=== PATIENT | female | born 1955 | race Caucasian/White ===

== ENCOUNTER → 2018-12-14 10:27 | Outpatient (CLI) | payer OTHER, SELFPAY ==
[2018-12-14 11:04] LABS: Add Manual Diff / Slide Review NO; Basophils Absolute Auto 0 /uL (0-100); Basophils Percent Auto 0.7 % (0-2); Eosinophils Absolute Auto 200 /uL (0-450); Eosinophils Percent Auto 2.9 % (2-4); Hematocrit 40.5 % (36-46); Hemoglobin 13.8 g/dL (12.0-16.0); Lymphocytes Absolute Auto 1800 /uL (1100-4500); Lymphocytes Percent Auto 24.9 % (25-40); Mean Corpuscular HGB Conc 34.2 % (30-36); Mean Corpuscular Hemoglobin 30.7 PG (26-34); Monocytes Absolute Auto 500 /uL (0-900); Monocytes Percent Auto 7.6 % (3-14); Neutrophils Absolute Auto 4500 /uL (1500-7000); Neutrophils Percent Auto 63.9 % (50-75); Platelet Count 393 X10^3/uL (150-400); Red Cell Distribution Width 14.3 % (11.6-14.8); White Blood Cell Count 7.1 X10^3/uL (4.5-11.0)
[2018-12-14 11:11] LABS: Hemoglobin A1C% w Est Avg Glu 5.9 % (4.0-6.0)
[2018-12-14 11:18] LABS: Carbon Dioxide 28 mmol/L (22-32); Chloride 100 mmol/L (98-107); HEMOLYSIS < 15 (0-50); Potassium 4.4 mmol/L (3.4-5.1); Sodium 138 mmol/L (137-145)
== END ==
PROVIDERS: Family Provider Family Medicine; PCP Family Medicine; Visit Provider Orthopaedic Surgery
DX: M17.10 Unilateral primary osteoarthritis, unspecified knee (principal); Z01.818 Encounter for other preprocedural examination; Z01.812 Encounter for preprocedural laboratory examination; R73.9 Hyperglycemia, unspecified
CPT/HCPCS: 36415; 80051; 83036; 85025; 93005

== ENCOUNTER 2018-12-26 07:57 | Inpatient (IN) | payer OTHER, SELFPAY ==
[2018-12-12 08:43] VITALS: BMI 36.1
[2018-12-26] VITALS (19 sets, daily range): BP systolic 96–146; BP diastolic 55–92; PULSE 65–81; RESP 14–18; TEMP 35.7–36.5; O2SAT 88–99; BMI 34.7; BMI 36.1
--- NOTE | 2018-12-26 06:00 | DI.RAD.S_ITS ---
PROCEDURE: XR KNEE RT 1TO2V INDICATIONS: total right knee post operative TECHNIQUE: 2 view(s) of the knee acquired. COMPARISON: None. FINDINGS: Bones: Patient is status post knee joint arthroplasty. Hardware components are in expected positions. Visualized bony structures are intact. Soft tissues: Overlying postoperative changes are noted. IMPRESSION: Normal postoperative alignment, after right total knee arthroplasty. Dictated by: Jourdan Lee M.D. on 12/26/2018 at 14:54 Approved by: Jourdan Lee M.D. on 12/26/2018 at 14:55
[2018-12-26] MEDS: CELECOXIB 200 MG CAPSULE PO (08:37)
[2018-12-26] MEDS: ACETAMINOPHEN 325 MG TABLET 975 MG PO ×3 (08:37→19:50)
[2018-12-26] MEDS: LACTATED RINGERS 1,000 ML 42 ML IV ×2 (08:43→12:23)
--- NOTE | 2018-12-26 09:28 | PM.PREOP ---
Pre-operative Note Interval Note History & Physical reviewed/Exam performed by Physician: Yes Changes to H&P: No
--- NOTE | 2018-12-26 09:28 | PM.OP.1 ---
Operative Date/Time/Diagnoses Date of procedure: 12/26/18 Time of procedure: 11:32 Pre-op diagnosis: Right knee osteoarthritis Post-op diagnosis: same Procedure & Clinicians Procedure: right total knee arthroplasty Same procedure as scheduled: Yes Indications: The patient presents today for total knee arthroplasty after failure of conservative treatment. The nature of the procedure including the risks and benefits, alternatives, postoperative course and expected outcome were discussed and all questions answered. Consent was obtained. Operative site confirmed and marked. Surgeon: Tobias Logan Health Plan Specialist: Rivera Monahan Anesthesia Type: General, Spinal and Local Operative Notes Findings: severe osteoarthritis with valgus alignment. Closure Type: primary Specimen(s): none sent Prosthetic devices, grafts, tissues, transplants, or devices: [facility]: 5 femoral component, 3 tibial component, 10 mm BCS polyethylene tray and 29 x 7.5 mm round patella Applied: implant(s) Estimated Blood Loss (mL): 50 Blood products transfused: none Tourniquet time (min): 21 Procedure in detail: The patient was taken to the operative suite and placed under General and spinal anesthesia. The patient was given prophylactic antibiotics prior to surgery. The patient was also given tranexamic acid, 1 g, just prior to surgery for postoperative hemostasis. The lateral knee was prepped and the joint injected with 20 mL of 1% Lidocaine with epinephrine. The knee was then prepped and draped in usual sterile fashion. The leg was exsanguinated with an Esmarch dressing and the tourniquet raised to 250 torr. A 15 cm anterior incision was made. Next a medial trivector arthrotomy was made. The extensor mechanism was marked to ensure accurate repair. Initial exposing dissection was carried out medially and laterally. The knee was then extended and the patellar thickness was measured and a cut made removing approximately 7 mm of bone with a goal of restoring normal patellar thickness. The patella was then sized and drilled. Some excess lateral bone was excised and the patellofemoral ligament released. The tourniquet was then released. The knee was then flexed and the [employer] femoral guide was placed. The anterior pins were placed and the distal rotation holes drilled. The distal cutting guide was placed and the templated distal femoral cut was made. The templating cutting block was then placed and the anterior, posterior and chamfer cuts made. The [employer] tibial guide was placed and the alignment checked along the axis of the proximal tibial with a callum. The proximal tibial cut was then made with an oscillating saw. All meniscus and bony debris was then removed. Flexion extension gaps were checked. There was mild tightness laterally as expected from her deformity. The lateral capsule was released using a 15 blade and a pie crust technique. This nicely balance the knee.. The soft tissues were then injected with a combination of 20 mL of half percent Marcaine with epinephrine and 20 mL of Exparel. The trial components were then placed. The knee went into full extension and flexion beyond 120?. There was excellent medial- lateral balance throughout motion. Patellar tracking was excellent. The trial components were removed and size is confirmed for the final implants. The knee was then exsanguinated with an Esmarch dressing and the tourniquet reapplied for cementing. The knee was cleansed with Pulsavac irrigation and dried. The final components were cemented in with high viscosity vacuum mixed bone cement with antibiotics. The knee was held in extension and the patellar clamp until the cement had adequately cured. The knee was then irrigated with dilute Betadine solution. The extensor mechanism was closed with 5 interrupted #1 Vicryl sutures in 90 degrees of flexion. The joint was then injected with a combination of 1 g of tranexamic acid and 20 mL of quarter percent Marcaine with epinephrine. The subcutaneous tissue was closed with 2-0 Vicryl. The skin was closed with charlotte and surgical adhesive. An Aquacel dressing and Geoff wrap were then applied. Complications: none Condition: stable Disposition: PACU Plan for aftercare: Critical access hospital protocol for total knee arthroplasty.
[2018-12-26] MEDS: CEFAZOLIN 2 GM/100 ML FROZ.PIGGY IV ×2 (10:12→18:02)
[2018-12-26] MEDS: TRANEXAMIC ACID 1,000 MG VIAL 1000 MG INJ ×2 (10:30→11:24)
--- NOTE | 2018-12-26 10:48 | SUR.OPER ---
Supine on padded OR bed. Pillow under head, arms secured on padded armboards <90 degree abduction. Safety belt across torso. Non-operative leg secured with tape over blanket over lower leg. Operative leg secured in DeMayo/Gopi positioner. Foam padded brace at thigh of operative leg.
[2018-12-26] MEDS: BUPIVACAINE 0.25% W/ EPI 30 ML VIAL 60 ML INJ (10:54)
[2018-12-26] MEDS: BUPIVACAINE LIPOSOME 266 MG/20 ML VIAL INJ (10:54)
[2018-12-26] MEDS: LIDOCAINE 1% W/EPI INJ 20 ML INJ (10:55)
[2018-12-26] MEDS: POVIDONE-IODINE 15 ML, SODIUM CHLORIDE 0.9% 250 ML TOP (10:56)
[2018-12-26] MEDS: HYDROMORPHONE 2 MG INJ 0.5 MG IV ×2 (12:14→12:25)
[2018-12-26] MEDS: ONDANSETRON 4 MG/2 ML INJ IV (13:25)
[2018-12-26] MEDS: LACTATED RINGERS 1,000 ML 125 ML IV (13:25)
--- NOTE | 2018-12-26 14:31 | PC.NURSE ---
Addendum entered by Tere Mckeon R.N. 12/26/18 14:36: At 1400, pt O2 sat 88% on RA while sleeping, states has sleep apnea with no formal diagnosis. O2 2L NC placed, O2 04% on 2L while sleeping/resting. Original Note: Day Shift- Report from PACU taken by BERTA Faust prior to pt arrival to unit. Pt arrived to room 201 at 1240 via bed. Oriented to post op routines, call light. Rodrigo at bedside. Denies any pain to right knee area, does state having sciatica pain, helps with repositioning. Pt able to raise RLE against some resistance. Right knee aquacel dressing CDI with rosio wrap CDI. IVF started to left hand PIV. Pt nauseated, given briana crackers per her request. Nausea persistent and requesting prn med. Zofran IV prn given with good effect. Call light within reach.
--- NOTE | 2018-12-26 15:27 | PT.IIE ---
Current Diagnoses Unilateral primary osteoarthritis, right knee (12/26/18) Surgery Performed Operation Date: 12/26/18 10:00 Actual Procedures p Total Knee Arthroplasty(Right) - Tobias Logan MD Surgical History (Last Updated 12/12/18 @ 09:26 by Tomasa Shannon, RN) History of partial hysterectomy (Acute) Hx of LASIK (Acute) Medical History (Last Updated 12/12/18 @ 09:26 by Tomasa Shannon RN) ADHD (Acute) Cystocele with rectocele (Acute) Depression (Acute) Diabetes (Acute) GERD (gastroesophageal reflux disease) (Acute) Hyperlipidemia (Acute) Numbness and tingling of both feet (Acute) Sciatica (Acute) Sleep apnea (Acute) Physical Therapy Inpatient Evaluation/Re-Eval M1 PT/OT-IP Prior Functional Status Start: 12/26/18 15:34 Freq: NEEDED Status: Active Protocol: Document 12/26/18 15:27 DLM (Rec: 12/26/18 15:51 DL [id number]) Medical Review Prior Functional Status Medical History Reviewed Yes Diet/Fluid Consistency Regular Communication WNL Mobility and Gait Independent, no device, community distances Activities of Daily Living and IADL's Independent Social History Household Members spouse children Living Arrangements House Number of Floors (Floors) Two Floors Number of Stairs To Enter/Railing? 2 Home Equipment Front Wheel Walker Additional Social History Comment laundry in the basement Adult son also available to help M2 PT-IP Current Condition Start: 12/26/18 15:34 Freq: NEEDED Status: Active Protocol: Document 12/26/18 15:27 DLM (Rec: 12/26/18 15:51 DL [id number]) Physical Therapy Current Condition Current Condition Evaluation Date 12/26/18 Treatment Diagnosis right TKA, gait impairment Onset Date 12/26/18 Weight Bearing Status Weight Bearing Status Weight Bear as Tolerated M3 PT-IP Subjective Start: 12/26/18 15:34 Freq: NEEDED Status: Active Protocol: Document 12/26/18 15:27 DLM (Rec: 12/26/18 15:51 DLM [id number]) Subjective Physical Therapy Visit Type Type Initial Evaluation Visit Start Time 15:00 Visit Stop Time 15:27 Total Visit Minutes 27 Number of UTILIZATION REVIEW NURSE Visits 0 Physical Therapy Visit Comments Patient Comments still having numbness especially in buttock area Patient Goals go home with help from Therapy Pain Assessment Pain When Pain Assessed After Treatment Pain Present Pain Present Pain Reported Location Right Posterior Knee Intensity 2 Scale Used Numeric (1 - 10) Description Aching Pain Management Techniques Apply Cold Elevation M4 PT-IP Mobility and Gait Start: 12/26/18 15:34 Freq: NEEDED Status: Active Protocol: Document 12/26/18 15:27 DLM (Rec: 12/26/18 15:51 DL [id number]) PT-Bed Mobility Assessment Supine to Sit Supine to Sit Standby Assistance Sit to Supine Sit to Supine Standby Assistance Scooting Scooting to Edge of Bed Independent PT-Transfer Assessment Sit to and From Stand Sit to and from Stand Contact Guard Assistance Use of Upper Extremities Equipment Transfer Assistive Device Gait Belt Front Wheeled Walker Transfers Transfer Destination Bedside Commode Transfer Technique Stand Step Pivot Transfer Ability Level of Assist Contact Guard Assistance Comments Mobility Comments verbal cues to hand placement and safety issues Gait Assessment Comments Gait Comments did not ambulate this visit due to nausea when up PT-Balance Assessment Sitting Balance and Reactions Static Sitting Balance Ability Normal Dynamic Sitting Balance Ability Normal Standing Balance and Reactions Static Standing Balance Ability Good Dynamic Standing Balance Ability Fair Device Used FWW M5 PT-IP Objective Assessments Start: 12/26/18 15:34 Freq: NEEDED Status: Active Protocol: Document 12/26/18 15:27 DLM (Rec: 12/26/18 15:51 [facility] [id number]) Orientation Orientation/Cognition Level of Alertness Alert Orientation Name Age Birthday Month Date Year Day of Week Place Situation Language Function Ability No Deficits Noted Safety Awareness Understands Safety Issues Memory Description No Deficits Noted Gross Range of Motion Upper Extremity ROM Assessment Within Functional Limits Lower Extremity ROM Assessment Right Impaired Impairments right knee limited post-op, tolerated 95 degrees flexion in sitting, tolerates full extension on bed Strength Upper Extremity Strength Assessment Within Functional Limits Lower Extremity Strength Assessment Right Impaired Hip able to do straight leg raise Knee knee ext 2+/5 Ankle DF 4/5 Coordination Assessment Gross Coordination Gross Coordination WNL Sensation Assessment Sensation Gross Sensation Right LE Impaired Sensation Description Numbness Comments Sensation Comments post-op block still wearing off Muscle Tone Muscle Tone WNL Yes M6 PT-IP Treatment Start: 12/26/18 15:34 Freq: NEEDED Status: Active Protocol: Document 12/26/18 15:27 DLM (Rec: 12/26/18 15:51 DL [id number]) Physical Therapy Treatment Exercises Exercises Ankle Pumps Education Education Provided Weight Bearing Status Safety M7 PT-IP Assessment and Plan Start: 12/26/18 15:34 Freq: NEEDED Status: Active Protocol: Document 12/26/18 15:27 DLM (Rec: 12/26/18 15:51 DL [id number]) PT Summary Assessment and Plan Potential Rehabilitation Potential Excellent Status of Condition at Evaluation Evolving Summary Impairments Pain ROM Strength Balance Sensation Bed Mobility Transfers Gait Activity Tolerance Assessment Summary Patient complains of nausea when up on bedside commode this visit. She reports lingering numbness in right LE and buttock area. She needs verbal cues for safe use of FWW. Pt returned to bed to rest after being up on bedside commode. She has a supportive Spouse to assist her at discharge. Anticipate she will be safe to discharge home if she continues to progress well . Goals Bed Mobility Goal Independent Transfer Goal Independent Front Wheeled Walker Gait Goal Independent Front Wheel Walker Gait Distance 150 feet Other Goals up and down 2 steps with min assist Days to Meet Goals 2 Frequency of Treatment Frequency Of Treatment Twice a Day Treatment Plan Physical Therapy Treatment Plan Bed Mobility Training Transfer Training Gait Training Therapeutic Exercise Balance Retraining Post Op Education Discharge Planning Hot or Cold Pack Recommendations To Nursing Amount of Assist Needed 1 Person Assist Discharge Recommendations PT Discharge Recommendations Home with Assistance Outpatient PT
[2018-12-26] MEDS: INDOMETHACIN 25 MG CAPSULE 50 MG PO ×2 (16:37→19:47)
[2018-12-26] MEDS: CYCLOBENZAPRINE 10 MG TABLET PO (16:41)
[2018-12-26] MEDS: CALCIUM CARBONATE 500 MG TAB PO (18:01)
[2018-12-26] MEDS: OXYCODONE IR 5 MG TABLET PO (19:46)
[2018-12-26] MEDS: GABAPENTIN 300 MG CAPSULE PO (19:48)
[2018-12-26] MEDS: ASPIRIN EC 81 MG TABLET PO (19:48)
[2018-12-26] MEDS: METFORMIN HCL 500 MG TABLET PO (19:48)
[2018-12-26] MEDS: ONDANSETRON 4 MG ODT PO (19:49)
[2018-12-26] MEDS: TOLTERODINE 1 MG TABLET 2 MG PO (19:49)
[2018-12-27] MEDS: CEFAZOLIN 2 GM/100 ML FROZ.PIGGY IV (02:24)
[2018-12-27 05:00] VITALS: BP 117/63; PULSE 75; RESP 18; TEMP 36.6; O2SAT 95
[2018-12-27] MEDS: PANTOPRAZOLE 20 MG TABLET PO (05:29)
--- NOTE | 2018-12-27 07:12 | P.DS_ITS ---
History of Present Illness Date Patient Seen: 12/27/18 Time Patient Seen: 07:09 Chief complaint: Right Total Knee Arthroplasty Narrative: Hospital day 2, postop day 1 following right total knee arthroplasty by Dr. Logan. Patient doing well at this time. She has been ambulating to the bathroom without difficulty. She did well with physical therapy yesterday. Pain controlled well with oxycodone and indomethacin. Patient is desiring to go home today. Discharge Providers Date of admission: 12/26/18 07:57 Discharge Date: 12/27/18 Primary care physician: Henrry Gao MD Consults: 12/26/18 12:55 Consult to Discharge Planning Routine Comment: Consult to Physical Therapy Evaluate & Treat Comment: Physician Instructions: postop TKA protocol Consult to Respiratory Therapy Evaluate & Treat Comment: Physician Instructions: Evaluate and treat Discharge provider: Tao Shook PA-C Summary Discharge Diagnosis: Status post right total knee arthroplasty Hospital Course: Patient brought to hospital on 12/26/2018 for above-noted surgery. She remained stable postoperatively. Did well with physical therapy. Ready for discharge home on postop day 1. Status at Discharge Cognitive/behavioral status at discharge: oriented Functional status at discharge: uses cane/walker Overall status at discharge: patient is progressing back to baseline Time Spent with Patient Less than 30 minutes Exam Vital Signs (past 8 hours): - 12/26/18 23:35 12/27/18 05:00 Temperature 97.5 F L 98 F Pulse Rate 78 75 Respiratory Rate 18 18 Blood Pressure 133/78 117/63 Pulse Oximetry 96 95 Oxygen Delivery Method Room Air Oxygen Flow Rate 1.5 Narrative Exam Narrative: Right leg. Geoff wrap an Aquacel dressing in place that are dry without drainage or inflammation. No calf pain or swelling. Pulses symmetrical. Discharge Plan Discharge Plan Patient Disposition: Home Discharge comment: Discharge to home today. Patient is a [facility] patient and has postoperative pain medications at home. She is scheduled for physical therapy at [facility]. Discharge Med Rec/Prescriptions Prescriptions: New aspirin 81 mg Tablet,Delayed Release (Dr/Ec) 81 mg PO BID Qty: 60 RF: 0 Continued metformin 500 mg Tablet 500 mg PO BID Qty: 0 RF: 0 simvastatin 20 MG tablet 40 mg PO BEDTIME Qty: 0 RF: 0 fluoxetine 20 mg Capsule 20 mg PO DAILY Qty: 0 RF: 0 cyclobenzaprine 5 mg Tablet 10 mg PO TID PRN (Reason: muscle relaxer) Qty: 0 RF: 0 acetaminophen [Tylenol Extra Strength] 500 mg Tablet 1,000 mg PO Q6H PRN (Reason: pain) RF: 0 tolterodine 2 mg Tablet 2 mg PO BID RF: 0 indomethacin 50 mg Capsule 50 mg PO BID-TID PRN (Reason: pain) RF: 0 gabapentin 300 mg Capsule 300 mg PO BID RF: 0 omeprazole 20 mg Capsule,Delayed Release(Dr/Ec) 20 mg PO DAILY RF: 0 Discontinued hydrocodone-acetaminophen [Vicodin] 5 MG/300 MG tablet 1 tab PO Q6H PRN (Reason: pain) Qty: 0 RF: 0 Follow up/Referrals: Henrry Gao MD [Primary Care Provider] - Provider Discharge Instructions Diet: Diet as Tolerated Activity: Ambulate as tolerated. Use walker as needed. Do [id number] exercises for the knee as much as possible. Cold/Heat Therapy: Cold pack to knee right knee as needed. Skin/Wound/Dressing Care Report to your healthcare provider any signs of infection, such as:: chills, fever, night sweats, increased pain, unusual drainage and unusual redness Dressing: Keep Aquacel dressing in place until postop visit. Visit Report/Discharge Packet Instructions: DI for Knee Replacement Discharge Data Primary Care Provider: Henrry Gao Attending Provider: Tobias Logan Admit Date/Time: 12/26/18 07:57 Quality VTE Deep Vein Thrombosis/Pulmonary Embolism Present on Admission: No
[2018-12-27 07:24] LABS: Hematocrit 34.2 % (36-46); Hemoglobin 11.7 g/dL (12.0-16.0)
[2018-12-27] MEDS: OXYCODONE IR 5 MG TABLET PO (08:07)
[2018-12-27] MEDS: ACETAMINOPHEN 325 MG TABLET 975 MG PO (08:08)
[2018-12-27] MEDS: METFORMIN HCL 500 MG TABLET PO (08:09)
[2018-12-27] MEDS: ASPIRIN EC 81 MG TABLET PO (08:09)
--- NOTE | 2018-12-27 08:46 | PT.IPTN ---
Current Diagnoses Unilateral primary osteoarthritis, right knee (12/26/18) Surgery Performed Operation Date: 12/26/18 10:00 Actual Procedures p Total Knee Arthroplasty(Right) - Tobias Logan MD Physical Therapy Treatment Note M2 PT-IP Current Condition Start: 12/26/18 15:34 Freq: NEEDED Status: Active Protocol: Document 12/26/18 15:27 DLM (Rec: 12/26/18 15:51 DLM [id number]) Physical Therapy Current Condition Current Condition Evaluation Date 12/26/18 Treatment Diagnosis right TKA, gait impairment Onset Date 12/26/18 Weight Bearing Status Weight Bearing Status Weight Bear as Tolerated M3 PT-IP Subjective Start: 12/26/18 15:34 Freq: NEEDED Status: Active Protocol: Document 12/27/18 08:33 SA (Rec: 12/27/18 08:46 SA [id number]) Subjective Physical Therapy Visit Type Type Treatment Note Visit Start Time 08:02 Visit Stop Time 08:30 Total Visit Minutes 28 Number of HOSPITAL PHARMACY TECHNICIAN Visits 1 Physical Therapy Visit Comments Patient Comments Pt up and eager for PT this AM . Patient Goals To catch 9 o'clock [place] home this morning. Therapy Pain Assessment Pain When Pain Assessed During Mobility Pain Present Pain Present Pain Reported Location Right Posterior Knee Intensity 2 Scale Used Numeric (1 - 10) Pain Management Techniques Apply Heat Modification of Treatment Re-positioning M4 PT-IP Mobility and Gait Start: 12/26/18 15:34 Freq: NEEDED Status: Active Protocol: Document 12/27/18 08:33 SA (Rec: 12/27/18 08:46 SA [id number]) PT-Bed Mobility Assessment Rolling Type of Rolling Roll to Right Level of Assist Standby Assistance Supine to Sit Supine to Sit Standby Assistance Sit to Supine Sit to Supine Standby Assistance Scooting Scooting to Edge of Bed Independent Scooting Up and Down in Bed Independent PT-Transfer Assessment Sit to and From Stand Sit to and from Stand Standby Assistance Contact Guard Assistance Equipment Transfer Assistive Device Gait Belt Front Wheeled Walker Orthotic/Prosthetic Devices or Brace: No Transfers Transfer Destination Bed Toilet Transfer Technique Stand Step Pivot Transfer Ability Level of Assist Standby Assistance Contact Guard Assistance Comments Mobility Comments Pt with SBA-CGA for most mobilities using FWW, cues to focus on task as pt is very talkative and distractable. Gait Assessment Gait Gait Assistance Required: Contact Guard Assist Distance (Feet) 150 Able to Maintain Weight Bearing Status Yes During Gait Assistive Devices Assistive Device Gait Belt Straight Cane Front Wheeled Walker Orthotic/Prosthetic Devices or Brace: No Gait Deviations General Gait Pattern Decreased Stride Length Decreased Feet Clearance Factors Limiting Gait Function Factors Limiting Gait Function Decreased Activity Tolerance Decreased Strength Pain Comments Gait Comments Gait training in [place] with FWW and SBA-CGA and pt able to increase WBing through RLE with continued gait and cues, also able to normalize step length. Gait training in room with no AD and CGA, short distances. LOB x 1 with self recovery, during turning. Pt was distracted and talking when this occured. Stair Climbing Assessment Evaluation Level of Assist On Stairs Standby Assistance Contact Guard Assistance 1 Person Assistance Devices Stair Climbing Assistive Devices Right Railing Technique/Endurance Stair Climbing Direction Ascend and Descend Stair Climbing Technique Step to Step Number of Steps Climbed 3 Query Text: Stair Climbing Set # Repetitions (reps) 2 Comments Stair Climbing Comments Step to gait pattern with SBA- CGA and min cues, completed 2 sets with no increased in pain . Pt states will be present to help with stairs. M5 PT-IP Objective Assessments Start: 12/26/18 15:34 Freq: NEEDED Status: Active Protocol: Document 12/26/18 15:27 DL (Rec: 12/26/18 15:51 [facility] [id number]) Orientation Orientation/Cognition Level of Alertness Alert Orientation Name Age Birthday Month Date Year Day of Week Place Situation Language Function Ability No Deficits Noted Safety Awareness Understands Safety Issues Memory Description No Deficits Noted Gross Range of Motion Upper Extremity ROM Assessment Within Functional Limits Lower Extremity ROM Assessment Right Impaired Impairments right knee limited post-op, tolerated 95 degrees flexion in sitting, tolerates full extension on bed Strength Upper Extremity Strength Assessment Within Functional Limits Lower Extremity Strength Assessment Right Impaired Hip able to do straight leg raise Knee knee ext 2+/5 Ankle DF 4/5 Coordination Assessment Gross Coordination Gross Coordination WNL Sensation Assessment Sensation Gross Sensation Right LE Impaired Sensation Description Numbness Comments Sensation Comments post-op block still wearing off Muscle Tone Muscle Tone WNL Yes M6 PT-IP Treatment Start: 12/26/18 15:34 Freq: NEEDED Status: Active Protocol: Document 12/27/18 08:33 SA (Rec: 12/27/18 08:46 SA [id number]) Physical Therapy Treatment Exercises Exercises Ankle Pumps Gluteal Sets Quad Sets Heel Slides Education Education Provided Weight Bearing Status Post-Op Packet Safety Other Treatments Other Treatment Performed Adjusted personal FWW for better fit. M7 PT-IP Assessment and Plan Start: 12/26/18 15:34 Freq: NEEDED Status: Active Protocol: Document 12/27/18 08:33 (Rec: 12/27/18 08:46 [id number]) PT Summary Assessment and Plan Summary Progress Towards Goals Progressing Toward Goals Assessment Summary Pt ready for d/c this AM, able to manage stairs and ambulation safely and has supportive at home. Has no equipment needs and has good safety awareness. OP PT set up to start next week. Frequency of Treatment Frequency Of Treatment Twice a Day Treatment Plan Physical Therapy Treatment Plan Bed Mobility Training Transfer Training Gait Training Therapeutic Exercise Balance Retraining Post Op Education Discharge Planning Hot or Cold Pack Recommendations To Nursing Amount of Assist Needed 1 Person Assist Discharge Recommendations PT Discharge Recommendations Home with Assistance Outpatient PT
[2018-12-27] MEDS: TOLTERODINE 1 MG TABLET 2 MG PO (09:02)
[2018-12-27] MEDS: FLUoxetine 20 MG CAPSULE PO (09:03)
[2018-12-27] MEDS: GABAPENTIN 300 MG CAPSULE PO (09:03)
[2018-12-27] MEDS: INDOMETHACIN 25 MG CAPSULE 50 MG PO (09:03)
--- NOTE | 2018-12-27 09:23 | PC.NURSE ---
Day Shift- Pt doing very well. Cleared by PT this AM. Pain controlled with prn Oxycodone. Dose given this AM prior to discharging home. Reviewed discharge information packet with pt. Reviewed but not limited to S/S of infection, pain management, activity, diet, avoiding constipation, wound care, follow up appointment. Pt's Rodrigo present for all instructions. No voiced concerns. Pt has already filled prescriptions for pain management at home. Boarding pass for [place] given, [place] on [address] to [place]. Pt left unit in no distress via wheelchair at 0922. with all belongings, [employer] and Rodrigo.
--- NOTE | 2018-12-27 15:32 | CM.DANOTE ---
Discharge Planning/Care Management DCP: assessment: case received, EMR reviewed. Discussed case in Team Rounds this morning. Pt is a 63 year old female who admitted yesterday for a planned R TKA: surgeon: Dr. Logan. Payer: [employer] PCP Michelle Gao Pt lives with her on [facility]. Ortho team had put in a d/c order early in the morning for d/c home if cleared by PT. PT reported in rounds that pt had already been cleared for home by PT. Went to room to check in with pt after rounds were completed. Pt had already left for home. CM Discharge Assessment Start: 12/27/18 15:31 Freq: Status: Discharge Protocol: Document 12/27/18 15:31 ITV (Rec: 12/27/18 15:32 ITV [id number]) Discharge Planning Assessment Advance Directives? No: Declines further information History Provided By Medical Record Prior Living Arrangements House Household Members spouse children Review Status In Process Next Review Type Continued Stay Review Pre-Anesthesia Assessment Start: 12/12/18 08:43 Freq: Status: Complete Protocol: Document 12/12/18 08:43 CAB (Rec: 12/12/18 09:36 CAB [id number]) Pre-Anesthesia Assessment Patient Information Reviewed Via Phone Assessment Assessment Completed With Patient Diagnostic Results BMP/CMP CBC EKG Other Comment A1c. Labs/ECG @ 12/14/18 Primary Care Provider Henrry Gao Seen Specialist in Last 12 Months Yes Specialist Seen Orthopedist Primary Language Burundian Magnaflux Operator Required No Height 160.02 cm Weight 92.533 kg Body Mass Index (BMI) 36.1 Hearing Ability Normal Visual Assist Glasses Dentition Type Teeth, Missing Barriers to Learning Memory Other Aids No Hx Anesthesia Reactions Yes: Violent vomiting post- op Hx Family Anesthesia Reaction No Hx Malignant Hyperthermia No Hx Blood Transfusions No Anesthesia Review Requested No Configuration Technician No alcohol intake current alcohol intake frequency holidays/special occasions only Smoking Status Never smoker Substance Use Type does not use Pain Present Pain Reported Musculoskeletal Symptoms Abnormal Gait Back Pain Difficulty Walking Joint Pain Numbness Radiating Pain into Limb History of Falling (Recent or History of No ) Patient is completely paralyzed or No completely immobile Prosthesis or Orthotic Device Cane Mental Status Oriented to own ability Is patient on oxygen? No Does patient have MCCURDY/SOB Yes: w/bending over r/t body habitus Hx Sleep Apnea No Suspected Sleep Apnea Yes Currently Taking a Beta Ronnie No Can You Climb a Flight of Stairs Without Yes SOB Hx Chest Pain No Hx SOB Yes: w/bending over r/t body habitus Hx Syncope or Dizziness No Anti-Coagulant Therapy No Has a Television Writer No Cardiac Testing No Hx Pacemaker/ICD No Pacemaker Rep Required? No Cardiac Clearance Received Not Applicable Diet Type At Home Regular dysphagia Yes: r/t sore in mouth presently Bladder Pattern Frequency Incontinent Urgency Urinary Catheter Present No Hx Urinary Self Catheterization No Diabetes Yes: Pt checks blood sugar rarely HgbA1C 5.9 Date 12/14/18 Patient No Lactating No Hx Drug Resistant Organism No Presence of External or Internal Medical No Devices Have you traveled outside the [facility] in the last 30 days? Marital Status Lives With spouse children Prior Living Arrangements House Number of Floors (Floors) Two Floors Support System Child/Children Spouse Does the Patient Have Assistance After Yes Surgery Patient Discharge Plan Description Return Home Comment Lives on [facility]. Pt advised overnight length of stay per surgeon Feels Safe in Current Environment Yes Been Physically Hurt or Threatened By a No Person in Current Environment Do you have thoughts of harming yourself None or others? Are you currently considering suicide? No Do you have a plan to hurt yourself or No Plan others? Do You Have Any Spiritual Beliefs That No May Affect Your HC Choices? Do You Have Any Cultural Practices That No May Affect Your HC Choices? Comment Orthodox Who Can We Speak to About Patient's Care Family, friends Identifying Code for Release of Patient Declines to issue Information Health Care Proxy/Next of Kin Rodrigo () Health Care Proxy Emergency Contact Name Rodrigo () Emergency Contact Advance Directives? No: Declines further information Power of Microbiology Lab Assistant No PAC Instructions Do not shave/clip surgical site Durable medical equipment Medications to take/avoid Nasal antibiotic No ETOH/petroleum product on skin DOS NPO Post-op transportation Pre-surgical wash Sturdy shoes/comfortable clothes Do not bring valuables and remove jewelry Stop Bang Assessment Do you snore loudly (louder than talking Yes or loud enough to be heard through closed doors) Has anyone ever observed you stop Yes breathing while sleeping? Do you have, or are you being treated No for, high blood pressure Is your BMI more than 35 kg/m2 Yes Age over 50 Yes Result Positive
== END 2018-12-27 09:22 | disposition home or self-care (01) | DRG 470 ==
PROVIDERS: Admitting Provider Orthopaedic Surgery; Family Provider Family Medicine; PCP Family Medicine; Visit Provider Orthopaedic Surgery
PROC: 0SRC0JZ Replacement of Right Knee Joint with Synthetic Substitute, Open Approach (ICD-10-PCS; CPT 27447; principal; 2018-12-26 10:00)
DX: M17.11 Unilateral primary osteoarthritis, right knee (principal); G47.33 Obstructive sleep apnea (adult) (pediatric); E66.9 Obesity, unspecified; E78.5 Hyperlipidemia, unspecified; E11.9 Type 2 diabetes mellitus without complications; F32.9 Major depressive disorder, single episode, unspecified; Z79.84 Long term (current) use of oral hypoglycemic drugs; Z68.36 Body mass index [BMI] 36.0-36.9, adult
CPT/HCPCS: 36415; 73560; 85014; 85018; 94760; 97116; 97162; 97530; C1776; C9290; J0690; J1100; J1170; J2250; J2405; J2704; J3010

== ENCOUNTER → 2020-03-02 12:43 | Outpatient (CLI) | payer OTHER, SELFPAY ==
[2018-12-26 13:34] VITALS: BMI 36.1
--- NOTE | 2020-03-02 | DI.MG.S_ITS ---
BILATERAL DIGITAL DIAGNOSTIC MAMMOGRAM 3D/2D: 03/02/2020 CLINICAL: Bilateral lumps and pain. Comparison is made to exam dated: 07/28/2015 [facility]. The tissue of both breasts is heterogeneously dense. This may lower the sensitivity of mammography. No significant masses, calcifications, or other findings are seen in either breast with attention to the palpable abnormality and focal pain makers in the left breast. Right breast pain is diffuse. IMPRESSION: INCOMPLETE: NEEDS ADDITIONAL IMAGING EVALUATION No significant masses, calcifications, or other findings are seen in either breast. Targeted ultrasound of the left breast is recommended and will immediately follow. This exam was interpreted at Station ID: [id number]. NOTE: For mammograms, a report in lay terms will be sent to the patient. Approximately 15% of breast malignancies will not be visualized mammographically. In the management of a palpable breast mass, a negative mammogram must not discourage biopsy of a clinically suspicious lesion. Electronically Signed By: Marcos Manzano M.D. slc/:03/02/2020 14:09:54 ACR BI-RADS Category 0: Incomplete [id number]
--- NOTE | 2020-03-02 | DI.US.S_ITS ---
LIMITED ULTRASOUND OF LEFT BREAST: 03/02/2020 CLINICAL: Palpable left breast lump. Comparison is made to exams dated: 03/02/2020 mammogram, 07/28/2015 ultrasound, 07/28/2015 mammogram, 11/13/2009 mammogram, 11/13/2009, and 01/19/2007 mammogram - [facility]. Color flow and real-time ultrasound of the left breast 3-4 o'clock, 9 o'clock, and 11 o'clock regions were performed. Upton scale images of the real-time examination were reviewed. No significant abnormalities were seen sonographically in the left breast in the region of palpable abnormalities and focal pain. IMPRESSION: NEGATIVE There is no sonographic evidence of malignancy. Patient was advised to monitor the area for significant change. A 1 year screening mammogram is recommended. Exam findings were conveyed to the patient by the Urgent Care Nurse Practitioner. This exam was interpreted at Station ID: [id number]. Electronically Signed By: Marcos Manzano M.D. slc/:03/02/2020 14:17:30 letter sent: Normal Exam Ultrasound BI-RADS: 1 Negative
== END ==
PROVIDERS: Family Provider Family Medicine; PCP Family Medicine; Referring Provider Family Medicine; Visit Provider Family Medicine
DX: R92.8 Other abnormal and inconclusive findings on diagnostic imaging of breast (principal); N64.4 Mastodynia; N63.20 Unspecified lump in the left breast, unspecified quadrant; N63.10 Unspecified lump in the right breast, unspecified quadrant
CPT/HCPCS: 76642; 77066; G0279

== ENCOUNTER → 2021-04-14 08:04 | Outpatient (CLI) | payer OTHER, SELFPAY ==
[2018-12-26 13:34] VITALS: BMI 36.1
[2021-04-14 19:19] LABS: Add Manual Diff / Slide Review NO; Basophils Absolute Auto 100 /uL (0-100); Basophils Percent Auto 0.8 % (0-2); Eosinophils Absolute Auto 300 /uL (0-450); Eosinophils Percent Auto 4.1 % (2-4); Hematocrit 40.6 % (36-46); Hemoglobin 13.3 g/dL (12.0-16.0); Lymphocytes Absolute Auto 2200 /uL (1100-4500); Lymphocytes Percent Auto 26.5 % (25-40); Mean Corpuscular HGB Conc 32.8 % (30-36); Mean Corpuscular Hemoglobin 30.3 PG (26-34); Mean Corpuscular Volume 92.4 fL (80-100); Monocytes Absolute Auto 600 /uL (0-900); Monocytes Percent Auto 7.7 % (3-14); Neutrophils Absolute Auto 5100 /uL (1500-7000); Neutrophils Percent Auto 60.9 % (50-75); Platelet Count 395 X10^3/uL (150-400); Red Cell Distribution Width 14.3 % (11.6-14.8); White Blood Cell Count 8.3 X10^3/uL (4.5-11.0)
[2021-04-14 19:58] LABS: Alanine Aminotransferase 29 IU/L (<35); Albumin 4.3 g/dL (3.5-5.0); Albumin Globulin Ratio 1.5 (1.0-2.8); Alkaline Phosphatase 97 U/L (38-126); Aspartate Aminotransferase 34 IU/L (14-36); BUN Creatinine Ratio 22.4 (6-22); Bilirubin Total 0.4 mg/dL (0.2-1.3); Blood Urea Nitrogen 17 mg/dL (7-17); Calcium 9.8 mg/dL (8.4-10.2); Carbon Dioxide 28 mmol/L (22-32); Chloride 100 mmol/L (98-107); Cholesterol 196 mg/dL (140-199); Estimated Glomerular Filt Rate > 60.0 mL/min (>60); Globulin 2.9 g/dL (1.7-4.1); Glucose 106 mg/dL (80-110); HDL Cholesterol 47 mg/dL (40-60); HEMOLYSIS < 15 (0-50); LDL Cholesterol Calculated 82 mg/dL (<100); Potassium 4.7 mmol/L (3.4-5.1); Sodium 136 mmol/L (137-145); Total Protein 7.2 g/dL (6.3-8.2); Triglycerides 333 mg/dL (35-150)
[2021-04-14 20:10] LABS: Hemoglobin A1C% w Est Avg Glu 6.1 % (4.0-6.0)
== END ==
PROVIDERS: Family Provider Family Medicine; PCP Family Medicine; Visit Provider Family Medicine
DX: E11.9 Type 2 diabetes mellitus without complications (principal); E78.5 Hyperlipidemia, unspecified; G89.29 Other chronic pain; M54.9 Dorsalgia, unspecified
CPT/HCPCS: 80053; 80061; 83036; 85025

== ENCOUNTER → 2021-10-19 10:18 | Outpatient (CLI) | payer OTHER, SELFPAY ==
[2018-12-26 13:34] VITALS: BMI 36.1
[2021-10-19 18:59] LABS: Add Manual Diff / Slide Review NO; Basophils Absolute Auto 0 /uL (0-100); Basophils Percent Auto 0.8 % (0-2); Eosinophils Absolute Auto 200 /uL (0-450); Eosinophils Percent Auto 3.3 % (2-4); Hematocrit 39.1 % (36-46); Hemoglobin 13.3 g/dL (12.0-16.0); Lymphocytes Absolute Auto 1700 /uL (1100-4500); Lymphocytes Percent Auto 31.1 % (25-40); Mean Corpuscular Hemoglobin 30.5 PG (26-34); Mean Corpuscular Volume 89.8 fL (80-100); Monocytes Absolute Auto 400 /uL (0-900); Monocytes Percent Auto 7.4 % (3-14); Neutrophils Absolute Auto 3200 /uL (1500-7000); Neutrophils Percent Auto 57.4 % (50-75); Platelet Count 363 X10^3/uL (150-400); Red Blood Cell Count 4.36 X10^6/uL (4.0-5.2); Red Cell Distribution Width 14.4 % (11.6-14.8); White Blood Cell Count 5.5 X10^3/uL (4.5-11.0)
[2021-10-19 19:22] LABS: Alanine Aminotransferase 28 IU/L (<35); Albumin 4.2 g/dL (3.5-5.0); Albumin Globulin Ratio 1.6 (1.0-2.8); Alkaline Phosphatase 63 U/L (38-126); Aspartate Aminotransferase 29 IU/L (14-36); BUN Creatinine Ratio 15.2 (6-22); Bilirubin Total 0.8 mg/dL (0.2-1.3); Blood Urea Nitrogen 10 mg/dL (7-17); Calcium 9.7 mg/dL (8.4-10.2); Carbon Dioxide 29 mmol/L (22-32); Chloride 103 mmol/L (98-107); Cholesterol 183 mg/dL (140-199); Estimated Glomerular Filt Rate > 60.0 mL/min (>60); Globulin 2.7 g/dL (1.7-4.1); Glucose 113 mg/dL (80-110); HDL Cholesterol 50 mg/dL (40-60); HEMOLYSIS < 15 (0-50); LDL Cholesterol Calculated 98 mg/dL (<100); Potassium 4.4 mmol/L (3.4-5.1); Sodium 137 mmol/L (137-145); Total Protein 6.9 g/dL (6.3-8.2); Triglycerides 176 mg/dL (35-150)
[2021-10-19 19:24] LABS: Hemoglobin A1C% w Est Avg Glu 6.1 % (4.0-6.0)
== END ==
PROVIDERS: Family Provider Family Medicine; PCP Family Medicine; Referring Provider Physician Assistant; Visit Provider Physician Assistant
DX: E11.9 Type 2 diabetes mellitus without complications (principal); E78.5 Hyperlipidemia, unspecified
CPT/HCPCS: 80053; 80061; 83036; 85025

== ENCOUNTER → 2022-05-27 13:55 | Outpatient (CLI) | payer OTHER, MEDICARE, SELFPAY ==
[2022-05-24 07:46] VITALS: BMI 36.1
--- NOTE | 2022-05-27 14:02 | DI.MRI.S_ITS ---
PROCEDURE: MR KNEE LT WO CON INDICATIONS: fall on knee yesterday, loose joint, swelling, TECHNIQUE: Noncontrast sagittal PD fast spin echo and T2 fast spin echo with fat saturation, sagittal 3-D FLASH with fat saturation; coronal T1 spin echo and PD fast spin echo with fat saturation, and axial PD fast spin echo with fat saturation through the knee. COMPARISON: [facility] ([place]), CR, XR KNEE LT 3V, 05/04/2022, 10:38. [facility] ([place]), CR, XR KNEE LT 3V, 05/24/2022, 8:18. FINDINGS: Image quality: Excellent. Anterior Cruciate Ligament: Intact. Posterior Cruciate Ligament: Intact. Medial Collateral Ligament: Mild thickening of the proximal medial collateral ligament is most likely secondary to a remote prior low-grade sprain. Lateral Collateral Ligament: Mild thickening and increased signal intensity at the proximal lateral collateral ligament may be related to a remote prior sprain. Medial Meniscus: Prominent osseous irregularity and protuberance is seen at the posterior root attachment of the medial meniscus. The posterior horn of the medial meniscus appears diminutive, most likely due to chronic tearing and maceration. There is mild extrusion of the meniscal body beyond the femorotibial joint line and superimposed horizontal tearing extending to the femoral articular surface near the free edge margin Lateral Meniscus: Possible trace free edge fibrillation of the meniscal body. Medial and Lateral Tendons: The semimembranosus tendon insertions and meniscocapsular junction appear intact. Visualized portions of the pes anserinus tendons appear normal. No abnormal bursal fluid. The long and short heads of the biceps femoris tendon appear intact. The popliteus tendon appears intact. No signs of posterolateral corner injury. Iliotibial band appears normal. Anterior Structures: The quadriceps and patellar tendons appear intact. No patellar subluxation. No femoral trochlear dysplasia or ventral trochlear prominence. No edema in the infrapatellar fat pad. Bones: No acute trabecular bone injury or fracture. Mild osseous edema is seen at the posterior aspect of the medial tibial plateau adjacent to a large vertebra in osteophyte. Degenerative changes are seen in the proximal tibiofibular articulation. Medial Femorotibial Cartilage: Large area of full-thickness cartilage loss is seen throughout the weight-bearing portion of the medial femorotibial compartment with small marginal osteophytes and very mild subchondral edema. Lateral Femorotibial Cartilage: Focal full-thickness cartilage fissuring is seen at the posterior weight-bearing portion of the lateral femoral condyle and there are small marginal osteophytes present. Partial-thickness cartilage irregularity is seen in the adjacent portion of the lateral tibial plateau. Patellofemoral Cartilage: Full-thickness cartilage loss is seen in the anterior compartment at the median ridge of the patella with mild subchondral cystic changes as well as within the adjacent portion of the medial patellar facet. High-grade partial-thickness cartilage loss is seen at the lateral patellar facet and there is cartilage fissuring in the trochlear groove with marginal osteophyte formation. Soft Tissues: There is a moderate to large joint effusion. A 10 mm nonedematous ossification adjacent to the posterior medial tibial plateau may represent a meniscal ossicle or intra-articular loose body. There is a small medial popliteal cyst with mild adjacent fluid inferiorly that may indicate prior cyst rupture. Mild nonspecific prepatellar and pretibial subcutaneous soft tissue edema is present. The musculature surrounding the knee is normal in bulk. IMPRESSION: 1. Complex tearing of the medial meniscus with a diminutive macerated tear at the posterior horn extending to the posterior root attachment as well as mild extrusion of the medial meniscal body with superimposed horizontal tearing. 2. Remote prior low-grade sprains of the medial and lateral collateral ligaments. 3. No acute trabecular bone injury or fracture. Cruciate ligaments are intact. 4. Tricompartmental osteoarthrosis is worst at the medial femorotibial compartment where there is a large area of full-thickness cartilage loss with mild subchondral edema. Grade 3 and grade 4 chondromalacia are also seen in the anterior compartment and there is grade 2 chondromalacia and focal full-thickness cartilage fissuring in the lateral compartment. 5. Moderate to large joint effusion. Nonedematous 10 mm ossification posterior to the intercondylar notch adjacent to a prominent posterior medial tibial plateau osteophyte may represent an intra-articular loose body or meniscal ossicle. 6. Small medial popliteal cyst with signs of possible prior cyst rupture. Dictated by: Damien Anderson M.D. on 05/27/2022 at 20:16 Approved by: Damien Anderson M.D. on 05/27/2022 at 20:29
== END ==
LOC: MRI 14:00
PROVIDERS: Family Provider Family Medicine; PCP Physician Assistant; Referring Provider Physician Assistant; Visit Provider Physician Assistant
DX: S83.282A Other tear of lateral meniscus, current injury, left knee, initial encounter; M17.12 Unilateral primary osteoarthritis, left knee; M94.262 Chondromalacia, left knee; M25.462 Effusion, left knee; M71.22 Synovial cyst of popliteal space [Baker], left knee; W19.XXXA Unspecified fall, initial encounter
CPT/HCPCS: 73721

== ENCOUNTER → 2022-06-08 09:16 | Outpatient (CLI) | payer OTHER, MEDICARE, SELFPAY ==
[2022-05-24 07:46] VITALS: BMI 36.1
[2022-06-08 19:56] LABS: Cholesterol 180 mg/dL (140-199); HDL Cholesterol 49 mg/dL (40-60); LDL Cholesterol Calculated 102 mg/dL (<100); Triglycerides 143 mg/dL (35-150)
[2022-06-08 20:30] LABS: Creatinine Urine Random 272.2 mg/dL
[2022-06-08 20:35] LABS: Microalbumi Creatinin Ratio Ur 17.6 ug/mg CR (<30); Microalbumin Urine Random 4.8 mg/dL (0-1.6)
== END ==
PROVIDERS: Family Provider Family Medicine; PCP Physician Assistant; Visit Provider Family Medicine
DX: E11.9 Type 2 diabetes mellitus without complications (principal); E78.5 Hyperlipidemia, unspecified
CPT/HCPCS: 80061; 82043; 82570

== ENCOUNTER → 2022-07-11 12:21 | Outpatient (CLI) | payer OTHER, MEDICARE, SELFPAY ==
[2022-05-24 07:46] VITALS: BMI 36.1
[2022-07-11 13:29] LABS: COVID19 -Nasal RAPID Negative (Negative)
== END ==
PROVIDERS: Family Provider Family Medicine; PCP Physician Assistant; Referring Provider Orthopaedic Surgery Foot and Ankle Surgery; Visit Provider Orthopaedic Surgery Foot and Ankle Surgery
DX: Z20.822 Contact with and (suspected) exposure to COVID-19 (principal)
CPT/HCPCS: 87635; C9803

== ENCOUNTER 2022-07-14 06:03 | Day surgery (SDC) | payer OTHER, MEDICARE, SELFPAY ==
[2022-05-24 07:46] VITALS: BMI 36.1
[2022-07-07 08:49] VITALS: BMI 34.5
[2022-07-14] VITALS (19 sets, daily range): BP systolic 109–163; BP diastolic 65–95; PULSE 68–103; RESP 10–18; TEMP 35.8–36.4; O2SAT 92–99; BMI 34.5
[2022-07-14] MEDS: ACETAMINOPHEN 325 MG TABLET 975 MG PO (07:01)
[2022-07-14] MEDS: PREGABALIN 75 MG CAPSULE PO (07:02)
[2022-07-14] MEDS: CELECOXIB 200 MG CAPSULE PO (07:02)
[2022-07-14] MEDS: LACTATED RINGERS 1,000 ML 42 ML IV (07:06)
--- NOTE | 2022-07-14 07:22 | PM.PREOP ---
Pre-operative Note COVID-19 COVID-19 status: Negative Interval Note History & Physical reviewed/Exam performed by Physician: Yes Changes to H&P: No
[2022-07-14] MEDS: SCOPOLAMINE 1 PATCH TOP (07:47)
--- NOTE | 2022-07-14 08:00 | DI.RAD.S_ITS ---
PROCEDURE: XR KNEE LT 1TO2V INDICATIONS: pacu postop TECHNIQUE: 2 view(s) of the knee acquired. COMPARISON: [facility] ([place]), JOSE DAVID, XR KNEE LT 3V, 05/24/2022, 8:18. FINDINGS: Bones: Patient is status post knee joint arthroplasty. Hardware components are in expected positions. Visualized bony structures are intact. Soft tissues: Overlying postoperative changes are noted. IMPRESSION: Postop changes from left total knee arthroplasty with anatomic left knee alignment. Dictated by: German Murray M.D. on 07/14/2022 at 16:45 Approved by: German Murray M.D. on 07/14/2022 at 16:46
[2022-07-14] MEDS: CEFAZOLIN 2 GM/100 ML PREMIX 100 ML IV ×3 (08:16→23:59)
[2022-07-14] MEDS: TRANEXAMIC ACID 1,000 MG VIAL 1000 MG INJ ×2 (08:25→10:43)
[2022-07-14] MEDS: BUPIVACAINE 0.25% (PF) 60 ML, EPINEPHrine 0.3 MG INJ (08:46)
[2022-07-14] MEDS: SODIUM CHLORIDE IRRIG SOLUTION 250 ML, POVIDONE-IODINE SPONGE STICKS 1 APPLIC IRR (08:47)
[2022-07-14] MEDS: MORPHINE 4 MG/ML INJ INJ (08:52)
--- NOTE | 2022-07-14 08:56 | SUR.OPER ---
Addendum entered by Tere Mckeon R.N. 07/14/22 09:20: Operative leg in DeMayo positioner and in control by the Surgeon. Original Note: Supine on padded OR bed. Pillow under head, arms secured on padded armboards <90 degree abduction. Safety belt across torso. Non-operative leg secured with tape over blanket over lower leg. Operative leg secured in DeMayo/Gopi/Nathe positioner. Foam padded brace at thigh of operative leg.
[2022-07-14] MEDS: SODIUM CHLORIDE 0.9% 1,000 ML 42 ML IV (09:10)
[2022-07-14] MEDS: BUPIVACAINE LIPOSOME 266 MG/20 ML VIAL INJ (09:30)
--- NOTE | 2022-07-14 11:02 | P.OP_ITS ---
Operative Date/Time/Diagnoses Date of procedure: 07/14/22 Time of procedure: 11:02 Pre-op diagnosis: Left knee arthritis M17.12 Post-op diagnosis: same Procedure & Clinicians Procedure: Left total knee arthroplasty CPT code 25280 Same procedure as scheduled: Yes Indications: The patient is a 67-year-old female with end-stage vyjw-gh-aatx knee arthritis. The patient has a significant left varus knee arthritis. They have failed conservative treatment with activity modifications, injections, physical therapy and bracing. They has been indicated for total knee replacement. The risks and benefits of the procedure have been discussed with the patient even opportunity to ask questions. The risks of surgery include but are not limited to infection, malunion, nonunion, fracture, loosening, persistence of pain, damage to nerves and blood vessels, need for additional procedures, DVT, PE, cardiopulmonary complications and . The patient expressed a thorough understanding of the risks and benefits of surgery and has elected to proceed. Consent was signed in the office. During the operation the services of physician certified surgical first assistant were medically indicated and necessary to provide the exposure of the operative site for the surgical procedure and to maintain the limb in a proper position to carry out the procedure safely and efficiently. Without a qualified diagnostic assistant being present this would extend the operative procedure and would have made the procedure more technically difficult to perform. The certified surgical first assistant was medically necessary for the proper positioning, retraction and manipulation of the limb, proper exposure, and manipulation of the tissue for implantation implants and closure. Surgeon: Mitra Medley Equity Research Analyst: Claire Ferrera Anesthesia Type: General and Local Operative Notes Findings: Grade 4 chondromalacia medial compartment and patellofemoral compartments. Degenerative meniscal tearing. End-stage arthritis. And osteophytes Closure Type: primary Specimen(s): none sent Prosthetic devices, grafts, tissues, transplants, or devices: Barger and nephew Journey BCS II femoral component Oxinium size 4. Non porous base plate size 2 left, patella 29 x 7.5 round patella. 9 mm size 1-2 BCS poly Estimated Blood Loss (mL): 50 Blood products transfused: none Tourniquet time (min): 131 Procedure in detail: Patient was seen in the preoperative area where the patient and site of surgery were identified in the operative knee was marked informed consent confirmed. This was the left knee. Patient received the appropriate preoperative antibiotics this was 2 g of Ancef. And other preoperative medications and was taken to the operating room placed on operating table in the supine position. Spinal anesthetic was attempted but was ultimately abandoned for general anesthetic. The operative extremity was then prepped and draped in the standard sterile fashion with a nonsterile tourniquet high on the thigh. Patient was placed on the green foam bolsters. A lateral post was placed at the level of the proximal thigh /trochanter area as a lateral post. Formal time-out procedure was performed confirming the patient's side and site of surgery and administration of appropriate preoperative antibiotics and implants were in the room accounted for. All were in agreement. Patient received a preoperative dose of tranexamic acid and then a 2nd dose at tourniquet release Patient was prepped and draped in the standard sterile fashion and the foot was placed into the [facility] leg farias. This was taken into high flexion and the incision was marked out over the anterior knee to the level of the medial tubercle tubercle. The Esmarch was then used for exsanguination and the tourniquet was inflated to 250 mmHg. Was made through the skin and subcutaneous tissue in high flexion this was then brought down into 30? of flexion for the medial parapatellar arthrotomy. A marker pen was used to jessenia the arthrotomy site for later repair. Joint fluid was evacuated. The anterior osteophytes and soft tissues were removed. Routine medial release was initially made along the medial proximal tibia with Bovie. The patella was on quite a bit of tension on attempted eversion so the quad incision was lengthened to relax it and then the patella was 1st cut using the saw sized and prepped and then subluxed throughout the case and protected. The leg was then taken into extension and the patella was everted and the patella was cut to accommodate the patellar button. This was sized to a 29 mm button for a 7.5 mm thickness to recreate the original dimensions of the patella. Poly was removed and the protector replaced and the patella was subluxed and the knee was taken back up into flexion and attention was returned to the femur. Then the rotational landmarks of Whitesides line and the trans epicondylar axis were marked on the femur with electrocautery. Then the intramedullary guide for the femur was created. The distal femoral cut was made in 6? of valgus using the intramedullary guide with the cut setting on 0+ as the patient did not have a preoperative flexion contracture. The ACL and PCL released. The proximal tibia was then cut using the intramedullary guide, taking 9 mm off the less involved side this was the lateral plateau. The Clive wing was used to check the slope through the guide. Second pass was made through the tibial cut guide with the saw after the cut tibia was removed plane down about 1 more mm and further smooth then the resection surface. In extension remainders of the medial and lateral menisci were removed. The extension flexion gaps were then checked using both the flexion extension blocks. And was selected for a 9 mm poly femur was then sized and the rotation set using the posterior condyle referencing 3? of external rotation. This measured a size 4. Cut block was then placed and the anterior, posterior and chamfer cuts were then made. The posterior osteophytes and soft tissues were then removed. Then in extension the posterior capsule was injected with a mixture of 60 mL of 0.25% Marcaine and 20 mL of Exparel care to avoid excessive injection posterior laterally. The remainder of this was saved for the capsule and subcutaneous tissue and placed during cement curing. Attention was then returned to the tibia and this was prepared with the rotation set by the extramedullary guide. Lined up with the tibial crest and the 2nd toe. The tibial trial was then pinned in place and the trial femoral components were placed. Then the intercondylar notch was cut through the femoral trial to create the box this was done with the distal than the proximal drill and then the box cut distally and then proximally. Next the insert was placed and the trial poly placed. This was stable in flexion and extension and there was a 0- 135 degree range of motion. The tibia was then finished with the drill and flange cuts and then this was removed. All trials were removed. The wound and bone was irrigated with pulsatile lavage. This was then dried with a sponge. The components were verified and opened and the cement was mixed. Cement was applied to the components and then to the bone then the tibia was cemented in place 1st followed by the femur then the patella. Excess cement was removed. With care looking around the back of the knee. Remainder of the injection was injected around the capsule. trial poly was placed back in the leg was placed into extension for the patellar cementing. After this was cured approximately 15 minutes later and the dilute Betadine solution was placed for at least 3 minutes in the wound this was then irrigated out and the final poly was placed. This was a 9 mm poly. The tourniquet was released hemostasis was achieved. Final g of tranexamic acid was given IV at the time of tourniquet release. The capsule was closed with 1. Ethibond suture. Subcutaneous layer was closed with 3-0 Vicryl suture. Skin was closed with a running V lock suture Stratafix Monocryl type suture and Dermabond. An Aquacel dressing was placed. An Geoff wrap was applied. Anesthetic was terminated the patient was woken from anesthesia and taken to recovery room in good condition. There no immediate complications from this procedure. The patient will be maintained on a standard total knee replacement protocol with weight-bearing as tolerated. Complications: none Post-operative Condition: stable Disposition: PACU Plan for aftercare: Weightbear as tolerated. Will start aspirin 81 mg b.i.d. postop day 1 for DVT prophylaxis. May remove Geoff wrap 48 hours after surgery. Quit Aquacel dressing in place until follow-up visit. Okay to shower with Aquacel. Follow-up in 2 weeks in the orthopedic visit.
[2022-07-14] MEDS: ONDANSETRON 4 MG/2 ML INJ IV ×2 (11:36→18:11)
[2022-07-14] MEDS: hydrOXYzine 50 MG/ML INJ IM (11:44)
--- NOTE | 2022-07-14 12:53 | SUR.PHASEI ---
Pt transferred to floor on oxygen in bed with belongings, report given to Zach HAMPTON on floor, vital signs stable on transfer, pain and nausea controlled.
[2022-07-14] MEDS: LACTATED RINGERS 1,000 ML 100 ML IV (12:58)
[2022-07-14] MEDS: HYDROCODONE/ACET 5/325 TABLET 1 TAB PO ×2 (14:27→20:14)
[2022-07-14] MEDS: HYDROCODONE/ACET 5/325 TABLET 2 TAB PO (15:01)
--- NOTE | 2022-07-14 15:05 | PT.IIE ---
Current Diagnoses Unilateral primary osteoarthritis, left knee (07/14/22) Surgery Performed Operation Date: 07/14/22 07:45 Actual Procedures p Total Knee Arthroplasty(Left) - Mitra Medley MD Surgical History (Last Updated 07/07/22 @ 08:55 by Tomasa Shannon, RN) History of partial hysterectomy History of total right knee replacement (12/26/18) Hx of LASIK Medical History (Last Updated 07/07/22 @ 09:29 by Tomasa Shannon RN) ADHD Allergic reaction to bee sting Cystocele with rectocele Depression Diabetes Dorsalgia GERD (gastroesophageal reflux disease) Hyperlipidemia Numbness and tingling of both feet Sciatica Suspected sleep apnea Physical Therapy Inpatient Evaluation/Re-Eval M1 PT/OT-IP Prior Functional Status Start: 07/14/22 16:36 Freq: NEEDED Status: Active Protocol: Document 07/14/22 15:05 AB (Rec: 07/14/22 16:50 AB [email or web address]) Medical Review Prior Functional Status Medical History Reviewed Yes Communication able to make needs known Mobility and Gait pt stated that she is independent with all mobilities and ambulation wthout AD Social History Household Members spouse,family,children Living Arrangements House Number of Floors (Floors) Two Floors Number of Stairs To Enter/Railing? pt stays on main level of the house 2 steps to enter without rails Home Environment High Toilet,Tub/Shower Home Equipment Four Wheel Walker,Straight Cane,Hand Held Shower,Grab Bars In Shower M2 PT-IP Current Condition Start: 07/14/22 16:36 Freq: NEEDED Status: Active Protocol: Document 07/14/22 15:05 AB (Rec: 07/14/22 16:50 AB [id number]) Physical Therapy Current Condition Current Condition Evaluation Date 07/14/22 Treatment Diagnosis s/p L TKA; difficulty in walking Onset Date 07/14/22 M3 PT-IP Subjective Start: 07/14/22 16:36 Freq: NEEDED Status: Active Protocol: Document 07/14/22 15:05 AB (Rec: 07/14/22 16:50 AB [email or web address]) Subjective Physical Therapy Visit Type Type Initial Evaluation Visit Start Time 15:05 Visit Stop Time 15:42 Total Visit Minutes 37 Number of BUTTON STATION WORKER Visits 0 Physical Therapy Visit Comments Patient Comments stated that she does not feel as good as she has expected Therapy Pain Assessment Pain When Pain Assessed At Rest Pain Present Pain Present Pain Reported Location Left Knee Intensity 7 M4 PT-IP Mobility and Gait Start: 07/14/22 16:36 Freq: NEEDED Status: Active Protocol: Document 07/14/22 15:05 AB (Rec: 07/14/22 16:50 AB [id number]) PT-Bed Mobility Assessment Supine to Sit Supine to Sit Moderate Assistance,Maximum Assistance,1 Person Assistance Sit to Supine Sit to Supine Moderate Assistance,1 Person Assistance PT-Transfer Assessment Sit to and From Stand Sit to and from Stand Moderate Assistance,Maximum Assistance,1 Person Assistance ,Use of Upper Extremities Equipment Transfer Assistive Device Gait Belt,Front Wheeled Walker Orthotic/Prosthetic Devices or Brace: No Transfers Transfer Destination Bedside Commode Transfer Technique Stand Step Pivot Transfer Ability Level of Assist Moderate Assistance,Maximum Assistance,1 Person Assistance ,Use of Upper Extremities Comments Mobility Comments ortho MD and PA informed PT that pt is going home after surgery. checked on pt and spouse in room. pt stated that she is not doing as well as she has expected and does not think that she is ready to go home. c/o 7/10 L knee. pt agreed to mobilize with PT. BP: 155/ 78 O2 sat at RA 98%. completed supine to sit mod to max A and max cues. pt stated that she needs to use the toilet. positioned bedside commode next to pt. pt completed sit to stand mod to max A and max cues and step transfer to commode mod to max A and cues using FWW. NAC in room. pt completed sit to stand from the commode mod to max A and NAC assisted pt with hygiene care and brief management. Pt able to maintain standing balance using fWW for support min A and cues. pt requested to go back to bed and completed step transfer to bed using FWW mod to max A and cues. completed sit to supine mod A and cues. positioned pt in bed. call light and table placed within reach. caregiver training set up and spouse will come in at 830 am tomorrow. informed pt and spouse regarding equipement needs: stated that son will borrow a FWW PT-Balance Assessment Sitting Balance and Reactions Static Sitting Balance Ability Good Dynamic Sitting Balance Ability Good Standing Balance and Reactions Static Standing Balance Ability Poor Dynamic Standing Balance Ability Poor Device Used FWW M5 PT-IP Objective Assessments Start: 07/14/22 16:36 Freq: NEEDED Status: Active Protocol: Document 07/14/22 15:05 AB (Rec: 07/14/22 16:50 AB [id number]) Orientation Orientation/Cognition Level of Alertness Alert Orientation Name,Place,Situation Language Function Ability No Deficits Noted Safety Awareness Decreased Safety Awareness Memory Description Short Term Impaired Gross Range of Motion Lower Extremity ROM Assessment Left Impaired Impairments L knee flexion: ~ 50 deg Strength Lower Extremity Strength Assessment Left Impaired Hip 4-/5 Knee 3+/5 Sensation Assessment Sensation Gross Sensation WNL Muscle Tone Muscle Tone WNL Yes M6 PT-IP Treatment Start: 07/14/22 16:36 Freq: NEEDED Status: Active Protocol: Document 07/14/22 15:05 AB (Rec: 07/14/22 16:50 AB [email or web address]) Physical Therapy Treatment Education Education Provided Precautions,Weight Bearing Status,Post-Op Packet,Safety M7 PT-IP Assessment and Plan Start: 07/14/22 16:36 Freq: NEEDED Status: Active Protocol: Document 07/14/22 15:05 AB (Rec: 07/14/22 16:50 AB [email or web address]) PT Summary Assessment and Plan Potential Rehabilitation Potential Fair Status of Condition at Evaluation Evolving Summary Impairments Pain,ROM,Strength,Balance, Coordination,Sensation,Tone, Cognition,Bed Mobility, Transfers,Gait,Activity Tolerance Assessment Summary pt requiring mod to max A with mobility and c/o increase L knee pain affecting mobility. d/c plan depending on progress . caregiver training set up and spouse will come in tomorrow at 830 am. will continue to assess. Goals Bed Mobility Goal Standby Assistance Transfer Goal Standby Assistance,Front Wheeled Walker Gait Goal Standby Assistance,Front Wheel Walker Gait Distance 200 Other Goals up/down 2 steps using SPC and PROJECT OFFICER CGA Days to Meet Goals 5 Frequency of Treatment Frequency Of Treatment Twice a Day Treatment Plan Physical Therapy Treatment Plan Bed Mobility Training,Transfer Training,Gait Training, Therapeutic Exercise,Balance Retraining,Post Op Education, Discharge Planning,Hot or Cold Pack,Neuromuscular Re-ed, Coordination Retraining,Manual Therapy Weight Bearing Status Weight Bearing Status Weight Bear as Tolerated Allowed Weight Bearing Amount (enter % LLE WBAT or #) (%) Recommendations To Nursing Amount of Assist Needed 1 Person Assist Discharge Recommendations PT Discharge Recommendations Home with Assistance, Outpatient PT Transportation Needs at Discharge Private Vehicle,Wheelchair/ Cabulance
[2022-07-14] MEDS: ACETAMINOPHEN 325 MG TABLET 650 MG PO ×2 (18:11→23:58)
[2022-07-14] MEDS: ASPIRIN EC 81 MG TABLET PO (20:14)
[2022-07-14] MEDS: DOCUSATE 100 MG CAPSULE PO (20:14)
[2022-07-15] VITALS (8 sets, daily range): BP systolic 117–176; BP diastolic 59–88; PULSE 83–90; RESP 16–18; TEMP 36–36.9; O2SAT 95–99
[2022-07-15] MEDS: HYDROCODONE/ACET 5/325 TABLET 2 TAB PO ×2 (02:43→07:19)
--- NOTE | 2022-07-15 06:43 | PC.NURSE ---
Pt has been c/o moderate pain, 2 tabs norco, given throughout shift. Ambulating w FWW and SBA well needing minimal assistance. Ice packs applied throughout shift per request. Dressing CDI w/ rosio wrap. 1L NC while sleeping for sleep apnea.
--- NOTE | 2022-07-15 07:55 | P.DS_ITS ---
History of Present Illness History of Present Illness Date Patient Seen: 07/15/22 Time Patient Seen: 07:55 Chief complaint: Left TKA *OPB* Narrative: Patient is complaining of moderate left knee pain this morning. Her nausea and vomiting has resolved. She is not worked with physical therapy yet, but is overall feeling well and would like to be discharged home to [facility] today. Discharge Providers Provider Discharge Date: 07/15/22 Primary care physician: Jessie Thomas PA-C Consults: 07/14/22 06:00 Consult to Anesthesiology Routine Comment: Consulting Provider: Anesthesiologist Reason for consultation: Regional block for post operative pain control Has provider been notified: No 07/14/22 11:34 Consult to Discharge Planning Routine Comment: Consult to Physical Therapy Evaluate & Treat Comment: if doing well home this evening/afternoon Physician Instructions: postop TKA protocol Consult to Respiratory Therapy Evaluate & Treat Comment: Physician Instructions: Evaluate and treat Discharge provider: Bindu Marie PA-C Summary Hospital Course Discharge Diagnosis: Left knee osteoarthritis Hospital Course: Operative Date/Time/Diagnoses Date of procedure: 07/14/22 Time of procedure: 11:02 Procedure & Clinicians Procedure: Left total knee arthroplasty CPT code 70625 Same procedure as scheduled: Yes Indications: The patient is a 67-year-old female with end-stage [id number] knee arthritis.? The patient has a significant left varus knee arthritis. They have failed conservative treatment with activity modifications, injections, physical therapy and bracing.? They has been indicated for total knee replacement.? The risks and benefits of the procedure have been discussed with the patient even opportunity to ask questions.? The risks of surgery include but are not limited to infection, malunion, nonunion, fracture, loosening, persistence of pain, damage to nerves and blood vessels, need for additional procedures, DVT, PE, cardiopulmonary complications and .? The patient expressed a thorough understanding of the risks and benefits of surgery and has elected to proceed.? Consent was signed in the office. During the operation the services of physician surgical instrument maker were medically indicated and necessary to provide the exposure of the operative site for the surgical procedure and to maintain the limb in a proper position to carry out the procedure safely and efficiently.? Without a qualified hospital medical assistant being present this would extend the operative procedure and would have made the procedure more technically difficult to perform.? The surgical instrument maker was medically necessary for the proper positioning, retraction and manipulation of the limb, proper exposure, and manipulation of the tissue for implantation implants and closure. 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 Degenerative meniscal tearing.? End-stage arthritis.? And osteophytes Closure Type: primary Specimen(s): none sent Prosthetic devices, grafts, tissues, transplants, or devices: Barger and nephew [place] BCS II femoral component Oxinium size 4.? Non porous base plate size 2 left, patella 29 x 7.5 round patella.? 9 mm size 1-2 BCS poly Estimated Blood Loss (mL): 50 Blood products transfused: none Tourniquet time (min): 131 Exam Vital Signs (past 8 hours): - 07/15/22 00:27 07/15/22 04:07 Temperature 97.2 F L 97.4 F L Pulse Rate 83 87 Respiratory Rate 16 16 Blood Pressure 117/59 L 143/88 H Pulse Oximetry 98 98 Oxygen Flow Rate 0 1 Fraction of Inspired Oxygen 24 SaO2/FiO2 Ratio 404 Oxygen Delivery Method Nasal Cannula Oxygen Flow Rate 1 Narrative Exam Narrative: Pleasant 67-year-old female, resting comfortably in bed, no acute distress. Aquacel dressing is clean, dry, intact with no surrounding erythema or induration. Bilateral lower extremity: Motor functions are grossly intact, sensation is grossly intact to light touch, calves are soft and nontender to palpation. [facility] Medical History ADHD Allergic reaction to bee sting Cystocele with rectocele Depression Diabetes Dorsalgia GERD (gastroesophageal reflux disease) Hyperlipidemia Numbness and tingling of both feet Sciatica Suspected sleep apnea Surgical History History of partial hysterectomy History of total right knee replacement (12/26/18) Hx of LASIK Family History Father Heart disease Alcohol abuse Mother Loud snoring Obesity Hypertension Diabetes mellitus Family/Other Loud snoring Obesity Diabetes mellitus Depression ADD (attention deficit disorder) Alcohol abuse Substance abuse Family/Other Loud snoring Sleep apnea Obesity Diabetes mellitus Autism Asperger syndrome ADD (attention deficit disorder) Social History household members: spouse, family and children Smoking Status: Never smoker alcohol intake: current Discharge Assessment & Plan Assessment and Plan Assessment: -stable status post left total knee arthroplasty Plan of Treatment: -mobilize with PT. Weightbearing as tolerated with front wheel walker. -continue with multimodal pain management -aspirin 81 mg twice daily x6 weeks for DVT prophylaxis -H&H ordered this morning -DC home today once cleared by PT Discharge Plan Discharge Plan Patient Disposition: Home Discharge orders & Medications Discharge Orders: Discharge (Order); Ordered 07/15/22 Ordered By: Bindu Marie Prescriptions: Continued omeprazole 40 mg capsule,delayed release(DR/EC) See Rx Instructions .ROUTE .COMPLEX Qty: 90 1RF Dose Instruction: TAKE ONE CAPSULE BY MOUTH EVERY DAY Rx Instructions: TAKE ONE CAPSULE BY MOUTH EVERY DAY fluoxetine 20 mg capsule See Rx Instructions .ROUTE .COMPLEX Qty: 30 4RF Dose Instruction: TAKE ONE CAPSULE BY MOUTH EVERY DAY Rx Instructions: TAKE ONE CAPSULE BY MOUTH EVERY DAY simvastatin 40 mg tablet 40 mg PO BEDTIME Qty: 90 1RF ezetimibe [Zetia] 10 mg tablet 10 mg PO DAILY Qty: 90 3RF metformin 750 mg tablet extended release 24 hr See Rx Instructions .ROUTE .COMPLEX Qty: 60 3RF Dose Instruction: TAKE ONE TABLET BY MOUTH TWICE A DAY Rx Instructions: TAKE ONE TABLET BY MOUTH TWICE A DAY gabapentin 300 mg capsule See Rx Instructions .ROUTE .COMPLEX Qty: 90 3RF Dose Instruction: TAKE ONE CAPSULE BY MOUTH THREE TIMES A DAY Rx Instructions: TAKE ONE CAPSULE BY MOUTH THREE TIMES A DAY acetaminophen [Tylenol Extra Strength] 500 mg Tablet 1,000 mg PO Q6H PRN (Reason: pain) meloxicam 15 mg tablet 15 mg PO DAILY PRN (Reason: Pain) Rx Instructions: Do not combine with other NSAIDS naproxen 500 mg tablet 500 mg PO BID Qty: 40 0RF Rx Instructions: Take with food Discontinued tramadol 50 mg tablet 50 mg PO BID MDD 100mg PRN (Reason: pain (scale score 7-10)) Qty: 20 0RF Follow up/Referrals: Jessie Thomas PA-C [Primary Care Provider] - Mitra Medley MD [Physician] - As previously scheduled (Follow up w/ Dr Medley on 07/27/2022 @ 1:30 pm at [facility] office in [place].) Diet/Activity/Treatments Diet: Diet as Tolerated Other treatments: Dressing/Wound care: -Remove the Geoff wrap 48 hours after surgery. -Keep Aquacell dressing in place until postoperative follow-up office visit. -you may see some drainage on the bandage, this is ok. If it is leaking or saturated, then the dressing can be changed to clean gauze or a clean surgical d ressing from a pharmacy or reinforced with additional gauze and paper tape or dressings over the top. Otherwise, just keep dressing in place until follow up. -Okay to shower. Keep wound out of direct water stream. No soaking or submerging until all the scabs fall off (approximately 6 weeks). -Please call the office if dressing becomes significantly wet, soiled, or saturated. Activities: -Weight-bearing as tolerated. Use front wheeled walker, and progress to cane when safe. -Continue with home exercises as directed by your physical therapist. -Elevate ?toes above the nose if you have significant swelling in your lower leg. (A wedge pillow is easiest.) -Ice your incision as needed for pain/inflammation/swelling. Protect your skin with a folded pillowcase. Follow-up: -Follow-up with your surgeon or PA in the office in 10-14 days after surgery. -Follow-up with your surgeon 6 weeks postoperatively. Call the office if you have chest pain, shortness of breath, significant swelling that will not resolve with elevating, fever over 101?, significantly worsening pain. [facility]: [phone] You have been discharged with medications. These have already been sent to your pharmacy. Pain: may include pain medications: Oxycodone take 5 mg orally every 4 hours as needed for pain. If your pain is more severe you may take up to 2 or a maximum 3 pills (15 mg) every 4 hours for pain. Take the smallest dose necessary. OR [place] 5/325mg --this has already been sent to her pharmacy Narcotic medication can make you feel constipated. You can get jskc-hwa-hqjjbrh stool softener such as docusate sodium-Colace at a pharmacy to help with this. You can also take ibuprofen 800 mg take this 3 times a day for least the 1st 10 days after surgery to help with pain control.-if you have not been prescribed Toradol/ketorolac. And you can take acetaminophen (Tylenol) take 500-1000 mg 3 times a day for pain control. You also have a prescription for Zofran (ondansetron) this is a strong anti nausea medication that can be taken up to every 8 hours as needed for nausea Additionally, you will take a baby aspirin 81 mg twice a day (morning and night) to help prevent blood clots x6 weeks If you have been discharged with ketorolac (toradol) this is a strong anti- inflammatory, do not take ibuprofen/meloxicam/mortin or other NSAIDS while on ketorolac. Once your ketorolac prescription is finished, you may restart taking other NSAIDs again. narcotic pain medication, tylenol and aspirin are fine to continue while on ketorolac. Skin/Wound/Dressing Care Report to your healthcare provider any signs of infection, such as:: chills, fever, night sweats, increased pain, unusual drainage and unusual redness Visit Report/Discharge Packet Instructions: DI for Knee Replacement Stand Alone Forms: Surgery Discharge Discharge Data Primary Care Provider: Jessie Thomas Attending Provider: Mitra Medley VTE Deep Vein Thrombosis/Pulmonary Embolism Present on Admission: No
[2022-07-15 08:25] LABS: Hematocrit 33.2 % (36-46); Hemoglobin 11.4 g/dL (12.0-16.0)
--- NOTE | 2022-07-15 08:30 | PT.IPTN ---
Current Diagnoses Unilateral primary osteoarthritis, left knee (07/14/22) Surgery Performed Operation Date: 07/14/22 07:45 Actual Procedures p Total Knee Arthroplasty(Left) - Mitra Medley MD Physical Therapy Treatment Note M2 PT-IP Current Condition Start: 07/14/22 16:36 Freq: NEEDED Status: Active Protocol: Document 07/14/22 15:05 AB (Rec: 07/14/22 16:50 AB [email or web address]) Physical Therapy Current Condition Current Condition Evaluation Date 07/14/22 Treatment Diagnosis s/p L TKA; difficulty in walking Onset Date 07/14/22 M3 PT-IP Subjective Start: 07/14/22 16:36 Freq: NEEDED Status: Active Protocol: Document 07/15/22 08:30 AB (Rec: 07/15/22 10:54 AB [email or web address]) Subjective Physical Therapy Visit Type Type Treatment Note Visit Start Time 08:30 Visit Stop Time 09:05 Total Visit Minutes 35 Number of C2 TACTICAL ANALYSIS TECHNICIAN Visits 0 Physical Therapy Visit Comments Patient Comments agreeable to do PT Therapy Pain Assessment Pain When Pain Assessed At Rest Pain Present Pain Present Pain Reported Location Left Knee Intensity 7 Scale Used increases with mobility Pain Management Techniques Apply Cold,Elevation, Modification of Treatment,Re- positioning,Timing of Activity with Medications M4 PT-IP Mobility and Gait Start: 07/14/22 16:36 Freq: NEEDED Status: Active Protocol: Document 07/15/22 08:30 AB (Rec: 07/15/22 10:54 AB [email or web address]) PT-Bed Mobility Assessment Supine to Sit Supine to Sit Moderate Assistance,1 Person Assistance PT-Transfer Assessment Sit to and From Stand Sit to and from Stand Moderate Assistance,Maximum Assistance,1 Person Assistance ,Use of Upper Extremities Equipment Transfer Assistive Device Gait Belt,Front Wheeled Walker Orthotic/Prosthetic Devices or Brace: No Transfers Transfer Destination Chair Transfer Technique ambulated Transfer Ability Level of Assist Moderate Assistance,1 Person Assistance,Use of Upper Extremities Comments Mobility Comments spouse in room for caregiver training. BP in supine: 155/ 78. pt completed supine to sit mod A with LLE mobility. c/o increarse knee pain. completed sit to stand mod to max A and max cues. ambulated towards the chair mod A and cues. presents with unsteady antalgic gait with decrease LE elevation and step length. pt sat on c/o increase pain. pt stated that she cannot do anymore activity and unable to conduct caregiver training aside from teaching spouse on how to don/doff safety belt. positioned pt on the chair. call light and table placed within reach. caregiver training set up again at 1pm this afternoon. Gait Assessment Gait Gait Assistance Required: Moderate Assistance,Maximum Assistance Distance (Feet) 12 Able to Maintain Weight Bearing Status Yes During Gait Assistive Devices Assistive Device Gait Belt,Front Wheeled Walker Gait Deviations General Gait Pattern Decreased Stride Length, Decreased Feet Clearance,Step- to Gait Factors Limiting Gait Function Factors Limiting Gait Function Decreased Activity Tolerance, Decreased Strength,Limited Range of Motion,Pain,Poor Balance,Poor Safety Awareness M5 PT-IP Objective Assessments Start: 07/14/22 16:36 Freq: NEEDED Status: Active Protocol: Document 07/14/22 15:05 AB (Rec: 07/14/22 16:50 AB [email or web address]) Orientation Orientation/Cognition Level of Alertness Alert Orientation Name,Place,Situation Language Function Ability No Deficits Noted Safety Awareness Decreased Safety Awareness Memory Description Short Term Impaired Gross Range of Motion Lower Extremity ROM Assessment Left Impaired Impairments L knee flexion: ~ 50 deg Strength Lower Extremity Strength Assessment Left Impaired Hip 4-/5 Knee 3+/5 Sensation Assessment Sensation Gross Sensation WNL Muscle Tone Muscle Tone WNL Yes M6 PT-IP Treatment Start: 07/14/22 16:36 Freq: NEEDED Status: Active Protocol: Document 07/15/22 08:30 AB (Rec: 07/15/22 10:[facility] Physical Therapy Treatment Education Education Provided Safety M7 PT-IP Assessment and Plan Start: 07/14/22 16:36 Freq: NEEDED Status: Active Protocol: Document 07/15/22 08:30 AB (Rec: 07/15/22 10:[facility] PT Summary Assessment and Plan Potential Rehabilitation Potential Fair Summary Impairments Pain,ROM,Strength,Balance, Coordination,Sensation,Tone, Cognition,Bed Mobility, Transfers,Gait,Activity Tolerance Progress Towards Goals Slow Progress due to Pain,Slow Progress due to Activity Tolerance Assessment Summary pt requiring mod to max A with mobility using FWW but unable to tolerate much activity due to c/o increase L knee pain. cargiver training unable to conduct due to pt unable to do further mobility. caregiver training set up again this afternoon at 1 pm. d/c plan depending on progress but at this time, will require SNF rehab. Goals Bed Mobility Goal Standby Assistance Transfer Goal Standby Assistance,Front Wheeled Walker Gait Goal Standby Assistance,Front Wheel Walker Gait Distance 200 Other Goals up/down 2 steps using SPC and LIME SPREADER CGA Days to Meet Goals 5 Frequency of Treatment Frequency Of Treatment Twice a Day Treatment Plan Physical Therapy Treatment Plan Bed Mobility Training,Transfer Training,Gait Training, Therapeutic Exercise,Balance Retraining,Post Op Education, Discharge Planning,Hot or Cold Pack,Neuromuscular Re-ed, Coordination Retraining,Manual Therapy Weight Bearing Status Weight Bearing Status Weight Bear as Tolerated Allowed Weight Bearing Amount (enter % LLE WBAT or #) (%) Recommendations To Nursing Amount of Assist Needed 1 Person Assist Discharge Recommendations PT Discharge Recommendations Home with 24/04 Assist Available,Home Health,SNF Rehab,SNF vs Acute Rehab Transportation Needs at Discharge Private Vehicle,Wheelchair/ Cabulance
[2022-07-15] MEDS: ASPIRIN EC 81 MG TABLET PO ×2 (09:20→20:25)
[2022-07-15] MEDS: DOCUSATE 100 MG CAPSULE PO ×2 (09:20→20:25)
[2022-07-15] MEDS: OXYCODONE IR 5 MG TABLET PO (09:44)
--- NOTE | 2022-07-15 11:01 | CM.DANOTE ---
Initial Discharge Planning Note: Case reviewed, met with patient and spouse in her room. Introduced self and role. Payer: [facility] and Medicare PCP: Macey Thomas 67 year old female underwent Left TKA yesterday by Dr Medley. She has been weak postoperatively and difficulty walking. Bindu KILPATRICK in this morning and wrote dc orders. Patient desires to return home.PT will work again with her this afternoon. Plan: Confer with PT regarding abilities. Pt plan is to return home to [facility] with her with help from children and grandchildren who live with them. PT notes state Home with HH vs SNF rehab. Follow closely for needs. Home Health referral. SE Discharge Planning/Care Management CM Discharge Assessment Start: 07/15/22 10:55 Freq: Status: Active Protocol: Document 07/15/22 10:55 (Rec: 07/15/22 11:01 [id number]) Discharge Planning Assessment Assigned Pilot Plant Research Technician Flor Kirk RN/DCP Advance Directives? No: Declines further information History Provided By Patient,Medical Record Prior Living Arrangements House Household Members spouse,family,children Comment Lives on [facility]. Large home. Children and grandchildren live there. Type of transporation used prior to Drives own vehicle admit Independent with ADL's Yes Is patient alert and oriented? Yes Needs Assistance With Home Chores / Shopping Caregiver for Another No DME Already Rented / Owned Bath Bench,FWW / Walker,Other Comment bars in shower. Barriers to Discharge No Comment Currently weak, will work again with PT at 1300. Discharge Plan Home Transportation Arrangement Spouse will transport in private vehicle. Additional Comment Possible HH PT? Review Status In Process Next Review Type Continued Stay Review Pre-Anesthesia Assessment Start: 07/07/22 08:49 Freq: Status: Complete Protocol: Document 07/07/22 08:49 CAB (Rec: 07/07/22 09:30 CAB [id number]) Pre-Anesthesia Assessment Patient Information Reviewed Via Phone Assessment Consent for Planned Operative Procedure( Yes s) Verified Diagnostic Results EKG Comment Last labs from 10/19/21 Outside ECG scanned, COVID screen- needs to schedule Primary Care Provider Jessie Thomas Seen Specialist in Last 12 Months Yes Specialist Seen Orthopedist Primary Language Eritrean Preferred Language Eritrean Marketing Manager Required No Height 160.02 cm Weight 88.451 kg Body Mass Index (BMI) 34.5 Hearing Ability Normal Visual Assist Glasses Dentition Type Teeth, Natural Present,Teeth, Missing Barriers to Learning Age related,Memory Other Aids No Hx Anesthesia Reactions Yes: Propofol causes violent vomiting post-op Additional comment Suspected JACKY not formally diagnosed, borrowed a CPAP that was recalled Hx Family Anesthesia Reaction No Hx Malignant Hyperthermia No Hx Blood Transfusions No Anesthesia Review Requested No Commercial Pilot No alcohol intake current alcohol intake frequency holidays/special occasions only Smoking Status Never smoker Substance Use Type does not use Pain Present Pain Reported Musculoskeletal Symptoms Abnormal Gait,Back Pain, Difficulty Walking,Joint Pain, Numbness,Radiating Pain into Limb History of Falling (Recent or History of Yes ) Patient is completely paralyzed or No completely immobile Prosthesis or Orthotic Device Cane Mental Status Oriented to own ability Is patient on oxygen? No Does patient have MCCURDY/SOB Yes: w/bending over r/t body habitus Hx Sleep Apnea Yes: Pt not formally diagnosed , was borrowing a machine that was recalled Currently Taking a Beta Ronnie No Can You Climb a Flight of Stairs Without Yes SOB Hx Chest Pain No Hx SOB Yes: w/bending over r/t body habitus Hx Syncope or Dizziness No Anti-Coagulant Therapy No Has a Office Assistant No Cardiac Testing No Hx Pacemaker/ICD No Pacemaker Rep Required? No Diet Type At Home Regular dysphagia No Gastrointestinal Symptoms Reflux Bladder Pattern Frequency,Incontinent,Urgency Urinary Catheter Present No Hx Urinary Self Catheterization No Diabetes Yes: Pt checks blood sugar rarely HgbA1C 6.2 Date 05/31/22 Patient No Lactating No Hx Drug Resistant Organism No Presence of External or Internal Medical Yes: Right knee prosthesis Devices Have you had any close contact with Yes: Pt had Covid approx 6-8 someone diagnosed with COVID-19? months ago Received a COVID vaccine? Yes Received all doses? Yes Marital Status Lives With spouse,family,children Prior Living Arrangements House Number of Floors (Floors) Two Floors Support System Child/Children,Spouse Does the Patient Have Assistance After Yes Surgery Patient Discharge Plan Description Return Home Comment Pt not advised on length of stay per surgeon Additional comment Lives on [facility] Feels Safe in Current Environment Yes Been Physically Hurt or Threatened By a No Person in Current Environment Do you have thoughts of harming yourself None or others? Are you currently considering suicide? No Do you have a plan to hurt yourself or No Plan others? Do You Have Any Spiritual Beliefs That No May Affect Your HC Choices? Do You Have Any Cultural Practices That No May Affect Your HC Choices? Comment Faith Who Can We Speak to About Patient's Care Family, friends Identifying Code for Release of Patient Declines to issue Information Health Care Proxy/Next of Kin Rodrigo () Health Care Proxy Emergency Contact Name Rodrigo () Emergency Contact Advance Directives? No: Declines further information Power of Retail Support Manager No PAC Instructions Diabetes instructions,Do not shave/clip surgical site, Durable medical equipment, Medications to take/avoid, Nasal antibiotic,No ETOH/ petroleum product on skin DOS, NPO,Post-op transportation, Sensory aids,Sturdy shoes/ comfortable clothes,Do not bring valuables and remove jewelry
[2022-07-15] MEDS: HYDROMORPHONE 0.5 MG INJ 0.2 MG IV ×3 (11:35→18:59)
[2022-07-15] MEDS: HYDROMORPHONE 2 MG TABLET PO ×2 (12:56→16:30)
--- NOTE | 2022-07-15 13:35 | PT.IPTN ---
Current Diagnoses Unilateral primary osteoarthritis, left knee (07/14/22) Surgery Performed Operation Date: 07/14/22 07:45 Actual Procedures p Total Knee Arthroplasty(Left) - Mitra Medley MD Physical Therapy Treatment Note M2 PT-IP Current Condition Start: 07/14/22 16:36 Freq: NEEDED Status: Active Protocol: Document 07/14/22 15:05 AB (Rec: 07/14/22 16:50 AB [email or web address]) Physical Therapy Current Condition Current Condition Evaluation Date 07/14/22 Treatment Diagnosis s/p L TKA; difficulty in walking Onset Date 07/14/22 M3 PT-IP Subjective Start: 07/14/22 16:36 Freq: NEEDED Status: Active Protocol: Document 07/15/22 13:35 AB (Rec: 07/15/22 15:05 AB [email or web address]) Subjective Physical Therapy Visit Type Type Treatment Note Visit Start Time 13:35 Visit Stop Time 14:15 Total Visit Minutes 40 Number of J2EE DEVELOPER Visits 0 Physical Therapy Visit Comments Patient Comments c/o 06/11 L knee pain Therapy Pain Assessment Pain When Pain Assessed At Rest Pain Present Pain Present Pain Reported Location Left Knee Intensity 9 Scale Used Numeric (0 - 10) Pain Behaviors Facial Grimacing,Guarding, Holding Area,Wincing Pain Management Techniques Apply Cold,Modification of Treatment,Re-positioning, Timing of Activity with Medications M4 PT-IP Mobility and Gait Start: 07/14/22 16:36 Freq: NEEDED Status: Active Protocol: Document 07/15/22 13:35 AB (Rec: 07/15/22 15:05 AB [email or web address]) PT-Bed Mobility Assessment Supine to Sit Supine to Sit Minimal Assistance,Moderate Assistance,1 Person Assistance Sit to Supine Sit to Supine Maximum Assistance,1 Person Assistance PT-Transfer Assessment Sit to and From Stand Sit to and from Stand Moderate Assistance,Maximum Assistance,1 Person Assistance ,Use of Upper Extremities Equipment Transfer Assistive Device Gait Belt,Front Wheeled Walker Orthotic/Prosthetic Devices or Brace: No Transfers Transfer Destination Toilet Transfer Technique ambulated Transfer Ability Level of Assist Moderate Assistance,Maximum Assistance,1 Person Assistance ,Use of Upper Extremities Comments Mobility Comments checked on pt at 1 pm and spouse in room but pt refused PT due to pain and wants to wait. checked on pt again after ~ 30 min. requested to use the toilet. completed supine to sit min to mod A and max cues. caregiver training conducted. spouse educated on don/doff of safety this morning but unable to put belt on pt this afternoon. educated again and pt continues to require cues. pt able to direct spouse on how to use safety belt. educated spouse on how to assist pt with sit to stand and ambulation. spouse assisted tp with sit to stand and ambulation to the toilet using FWW mod to max A and max cues . presents with difficulty with ambulation with heavy UE use on FWW for support and with antalgic gait. spouse assisted pt with standing balance and brief management. spouse assisted pt with ambulation towards the chair using FWW mod to max A and max cues. informed pt and spouse regarding current level of function and regarding SNF rehab recommendation. spouse stated that they can make it home and he is not worried about pt doing steps and getting into the house because there are 3 strong men that can assist pt. informed spouse and pt regarding safety d/c plan. pt understood. nurse case management came in to talk to pt and spouse and agreed to start SNF process. continued caregiver training. instructed spouse to don safety belt again. spouse continues to require cues and assistance from the pt on how to put on. spouse assisted pt with sit to stand from the chair and step transfer to EOB using FWW mod to max A and max cues. Assessed pt's LE stability to determine stair climbing appropriateness. instructed pt with single leg stance using bilateral UE use on FWW and completed on LLE with 5 sec hold. Attempted with one hand support on FWW but pt unable to complete single leg stance on LLE. attempted again with one hand support and FWW and ETHYLENE PLANT OPERATOR on the other side and pt unable to complete . pt completed sit to supine with spouse assisting max A with BLE elevation to bed. positioned pt in bed. call light and table placed within reach. Gait Assessment Gait Gait Assistance Required: Moderate Assistance,Maximum Assistance,1 Person Assist Distance (Feet) 10 Able to Maintain Weight Bearing Status Yes During Gait Assistive Devices Assistive Device Gait Belt,Front Wheeled Walker Orthotic/Prosthetic Devices or Brace: No Gait Deviations General Gait Pattern Antalgic,Decreased Stride Length,Decreased Feet Clearance,Step-to Gait Factors Limiting Gait Function Factors Limiting Gait Function Decreased Activity Tolerance, Decreased Strength,Limited Range of Motion,Pain,Poor Balance,Poor Safety Awareness M5 PT-IP Objective Assessments Start: 07/14/22 16:36 Freq: NEEDED Status: Active Protocol: Document 07/14/22 15:05 AB (Rec: 07/14/22 16:50 AB [id number]) Orientation Orientation/Cognition Level of Alertness Alert Orientation Name,Place,Situation Language Function Ability No Deficits Noted Safety Awareness Decreased Safety Awareness Memory Description Short Term Impaired Gross Range of Motion Lower Extremity ROM Assessment Left Impaired Impairments L knee flexion: ~ 50 deg Strength Lower Extremity Strength Assessment Left Impaired Hip 4-/5 Knee 3+/5 Sensation Assessment Sensation Gross Sensation WNL Muscle Tone Muscle Tone WNL Yes M6 PT-IP Treatment Start: 07/14/22 16:36 Freq: NEEDED Status: Active Protocol: Document 07/15/22 13:35 AB (Rec: 07/15/22 15:05 AB [id number]) Physical Therapy Treatment Education Education Provided Safety M7 PT-IP Assessment and Plan Start: 07/14/22 16:36 Freq: NEEDED Status: Active Protocol: Document 07/15/22 13:35 AB (Rec: 07/15/22 15:05 AB [email or web address]) PT Summary Assessment and Plan Potential Rehabilitation Potential Fair Summary Impairments Pain,ROM,Strength,Balance, Coordination,Sensation,Tone, Cognition,Bed Mobility, Transfers,Gait,Activity Tolerance Progress Towards Goals Slow Progress due to Pain,Slow Progress due to Activity Tolerance Assessment Summary pt requiring mod to max A with ambulation using FWW and continues to have decrease activity tolerance with c/o increase L knee fatou. pt unable to ambulate farther after toilet transfers. caregiver training conducted and further training is needed . pt continues to be not appropriate to do stair climbing training with pt unable to complete a single leg stance on LLE despite FWW/ ETHYLENE PLANT OPERATOR. pt will require SNF rehab at this time. will continue to assess. Goals Bed Mobility Goal Standby Assistance Transfer Goal Standby Assistance,Front Wheeled Walker Gait Goal Standby Assistance,Front Wheel Walker Gait Distance 200 Other Goals up/down 2 steps using SPC and ETHYLENE PLANT OPERATOR CGA Days to Meet Goals 5 Frequency of Treatment Frequency Of Treatment Twice a Day Treatment Plan Physical Therapy Treatment Plan Bed Mobility Training,Transfer Training,Gait Training, Therapeutic Exercise,Balance Retraining,Post Op Education, Discharge Planning,Hot or Cold Pack,Neuromuscular Re-ed, Coordination Retraining,Manual Therapy Weight Bearing Status Weight Bearing Status Weight Bear as Tolerated Allowed Weight Bearing Amount (enter % LLE WBAT or #) (%) Recommendations To Nursing Amount of Assist Needed 1 Person Assist Discharge Recommendations PT Discharge Recommendations SNF Rehab Transportation Needs at Discharge Wheelchair/Cabulance
[2022-07-15] MEDS: CALCIUM CARBONATE 500 MG TAB PO ×3 (17:54→21:20)
[2022-07-15] MEDS: ACETAMINOPHEN 325 MG TABLET 650 MG PO (17:55)
[2022-07-15] MEDS: SODIUM CHLORIDE 0.9% FLUSH 10 ML IV (20:25)
[2022-07-16 00:04] VITALS: BP 146/84; PULSE 89; RESP 18; TEMP 36.7; O2SAT 100
[2022-07-16] MEDS: CALCIUM CARBONATE 500 MG TAB PO ×2 (00:54→03:58)
--- NOTE | 2022-07-16 03:23 | PC.NURSE ---
Pt is AxOx4, needs 1 person assistance to the toilet. VSS, pt c/o heartburn and recieved PRN Tums x2 with good effect. Dressing on L knee C/D/I. Pt slept well all night. No other changes. Continue monitor.
[2022-07-16] MEDS: HYDROMORPHONE 2 MG TABLET PO ×3 (03:57→13:13)
[2022-07-16] MEDS: ACETAMINOPHEN 325 MG TABLET 650 MG PO ×2 (05:03→12:19)
[2022-07-16] MEDS: ONDANSETRON 4 MG/2 ML INJ IV ×2 (05:03→08:28)
[2022-07-16 07:36] VITALS: BP 155/85; PULSE 103; RESP 18; TEMP 35.9; O2SAT 95
[2022-07-16] MEDS: polyethylene glycoL 3350 17 GM POWD.PACK PO (08:23)
[2022-07-16] MEDS: ASPIRIN EC 81 MG TABLET PO (08:23)
[2022-07-16] MEDS: DOCUSATE 100 MG CAPSULE PO (08:23)
[2022-07-16] MEDS: SODIUM CHLORIDE 0.9% FLUSH 10 ML IV (08:24)
--- NOTE | 2022-07-16 08:59 | PT.IPTN ---
Current Diagnoses Unilateral primary osteoarthritis, left knee (07/14/22) Surgery Performed Operation Date: 07/14/22 07:45 Actual Procedures p Total Knee Arthroplasty(Left) - Mitra Medley MD Physical Therapy Treatment Note M2 PT-IP Current Condition Start: 07/14/22 16:36 Freq: NEEDED Status: Active Protocol: Document 07/14/22 15:05 AB (Rec: 07/14/22 16:50 AB [id number]) Physical Therapy Current Condition Current Condition Evaluation Date 07/14/22 Treatment Diagnosis s/p L TKA; difficulty in walking Onset Date 07/14/22 M3 PT-IP Subjective Start: 07/14/22 16:36 Freq: NEEDED Status: Active Protocol: Document 07/16/22 08:59 AB (Rec: 07/16/22 11:31 AB [id number]) Subjective Physical Therapy Visit Type Type Treatment Note Visit Start Time 08:59 Visit Stop Time 09:35 Total Visit Minutes 36 Number of LABORER SHIPYARD Visits 0 Physical Therapy Visit Comments Patient Comments agreeable to do PT Therapy Pain Assessment Pain When Pain Assessed At Rest Pain Present Pain Present Pain Reported Location Left Knee Intensity 5 Scale Used Numeric (0 - 10) Pain Management Techniques Apply Cold,Distraction, Elevation,Modification of Treatment,Re-positioning, Timing of Activity with Medications M4 PT-IP Mobility and Gait Start: 07/14/22 16:36 Freq: NEEDED Status: Active Protocol: Document 07/16/22 08:59 AB (Rec: 07/16/22 11:31 AB [id number]) PT-Bed Mobility Assessment Supine to Sit Supine to Sit Moderate Assistance,1 Person Assistance Sit to Supine Sit to Supine Moderate Assistance PT-Transfer Assessment Sit to and From Stand Sit to and from Stand Minimal Assistance,Moderate Assistance,1 Person Assistance ,Use of Upper Extremities Equipment Transfer Assistive Device Gait Belt,Front Wheeled Walker Orthotic/Prosthetic Devices or Brace: No Transfers Transfer Destination Bed Transfer Technique ambulated Transfer Ability Level of Assist Minimal Assistance,Moderate Assistance,1 Person Assistance ,Use of Upper Extremities Comments Mobility Comments pt sitting on EOB upon PT's arrival. instructed to lay back in bed for caregiver training and spouse was able to assist pt with sit to supine mod A. spouse in room and stated that they decided for pt to go home. stated that they are affiliated with the fire fighters in their community and will have them assist pt to get into the house. stated they can use the station's chair lift to get her into the house. caregiver training conducted. pt completed supine to sit with spouse assisting. spouse put safety belt on pt with pt instructing spouse on how to manage. spouse assisted pt with sit to stand and ambulated with pt in room ~ 35 ft using FWW. pt sat on the chair. PT educated pt and spouse regarding stair management. spouse ambulated pt towards platform step. attempted up/ down step with PT providing assistance and pt unable to complete. pt unable to lift LE up the step despite PARLIAMENTARY ARCHIVIST max A providing by PT and use of SPC. pt ambulated back to the chair using FWW with spouse assisting. positioned pt on the chair. call light and table placed within reach. pt and spouse aware of PT's d/ c recommendation. Pt and spouse decided to go home and refuse SNF rehab. Agreed to HHPT. Gait Assessment Gait Gait Assistance Required: Minimum Assistance,Moderate Assistance Distance (Feet) 35 Able to Maintain Weight Bearing Status Yes During Gait Assistive Devices Assistive Device Gait Belt,Front Wheeled Walker Orthotic/Prosthetic Devices or Brace: No Gait Deviations General Gait Pattern Antalgic,Decreased Stride Length,Decreased Feet Clearance,Step-to Gait Factors Limiting Gait Function Factors Limiting Gait Function Decreased Activity Tolerance, Decreased Strength,Difficulty Following Directions,Limited Range of Motion,Pain,Poor Balance,Poor Safety Awareness Stair Climbing Assessment Comments Stair Climbing Comments attempted but pt unable to complete M5 PT-IP Objective Assessments Start: 07/14/22 16:36 Freq: NEEDED Status: Active Protocol: Document 07/14/22 15:05 AB (Rec: 07/14/22 16:50 AB [id number]) Orientation Orientation/Cognition Level of Alertness Alert Orientation Name,Place,Situation Language Function Ability No Deficits Noted Safety Awareness Decreased Safety Awareness Memory Description Short Term Impaired Gross Range of Motion Lower Extremity ROM Assessment Left Impaired Impairments L knee flexion: ~ 50 deg Strength Lower Extremity Strength Assessment Left Impaired Hip 4-/5 Knee 3+/5 Sensation Assessment Sensation Gross Sensation WNL Muscle Tone Muscle Tone WNL Yes M6 PT-IP Treatment Start: 07/14/22 16:36 Freq: NEEDED Status: Active Protocol: Document 07/16/22 08:59 AB (Rec: 07/16/22 11:31 AB [email or web address]) Physical Therapy Treatment Education Education Provided Safety M7 PT-IP Assessment and Plan Start: 07/14/22 16:36 Freq: NEEDED Status: Active Protocol: Document 07/16/22 08:59 AB (Rec: 07/16/22 11:31 AB [id number]) PT Summary Assessment and Plan Potential Rehabilitation Potential Fair Summary Impairments Pain,ROM,Strength,Balance, Coordination,Sensation,Tone, Cognition,Bed Mobility, Transfers,Gait,Activity Tolerance Progress Towards Goals Slow Progress due to Pain,Slow Progress due to Activity Tolerance Assessment Summary caregiver training conducted and spouse was able to assist pt with bed mobility, transfers and ambulation using FWW. pt continues to not be able to complete stair climbing. pt and family plans to have their local firefighters assist pt to get into the house. pt and spouse aware of PT's d/c recommendation. pt and spouse refuse SNF rehab. pt will need HHPT. Goals Bed Mobility Goal Standby Assistance Transfer Goal Standby Assistance,Front Wheeled Walker Gait Goal Standby Assistance,Front Wheel Walker Gait Distance 200 Other Goals up/down 2 steps using SPC and PARLIAMENTARY ARCHIVIST CGA Days to Meet Goals 5 Frequency of Treatment Frequency Of Treatment Twice a Day Treatment Plan Physical Therapy Treatment Plan Bed Mobility Training,Transfer Training,Gait Training, Therapeutic Exercise,Balance Retraining,Post Op Education, Discharge Planning,Hot or Cold Pack,Neuromuscular Re-ed, Coordination Retraining,Manual Therapy Weight Bearing Status Weight Bearing Status Weight Bear as Tolerated Allowed Weight Bearing Amount (enter % LLE WBAT or #) (%) Recommendations To Nursing Amount of Assist Needed 1 Person Assist Discharge Recommendations PT Discharge Recommendations SNF Rehab Transportation Needs at Discharge Wheelchair/Cabulance
--- NOTE | 2022-07-16 11:28 | PC.NURSE ---
Day shift: SHONNA Walsh has been made aware Pt is going to d/c home to [place] today at approx 1130 via phone call by this filing writer.
--- NOTE | 2022-07-16 12:43 | CM.DPNOTE ---
Discharge Planning Note: Met with patient and spouse this morning, she is feeling better today, no further nausea. Patient to work with PT this morning. Patient and spouse have renewed their intent to return home to [place] where they have family support available. Additionally they state, the fire department has agreed to help patient get up the few steps into their home. Later this morning, the nurse had spoken with Bindu KILPATRICK and she has okayed for home with services. [facility] had already accepted referral for PT/OT. Faxed necessary information, Face to Face, etc. Provided pamphlet to patient and instructed to call them Monday morning. Patient and spouse given ferry pass for the 3:25 pm ferry, so they will discharge in time for the ferry. Spouse is providing transport. Flor Kirk RN/DCP
[2022-07-16] MEDS: ONDANSETRON 4 MG ODT PO (13:15)
--- NOTE | 2022-07-16 14:08 | PC.NURSE ---
Day Shift Pt left floor via wheelchair accompanied by spouse, Pt had all personal belongings, All paperwork given and signed all questions answered. VS WNL, Pt was given Pain medication for transport to home. Pt denied nausea. Pt left the floor at 1410
== END 2022-07-16 14:16 | disposition home or self-care (01) ==
LOC: OR 06:05 → AC 06:06
PROVIDERS: Physician Assistant; Family Provider Family Medicine; PCP Physician Assistant; Referring Provider Orthopaedic Surgery Foot and Ankle Surgery; Visit Provider Orthopaedic Surgery Foot and Ankle Surgery
PROC: 0SRD0JZ Replacement of Left Knee Joint with Synthetic Substitute, Open Approach (ICD-10-PCS; CPT 27447; principal; 2022-07-14 07:45)
DX: M17.12 Unilateral primary osteoarthritis, left knee (principal); M94.262 Chondromalacia, left knee; E11.9 Type 2 diabetes mellitus without complications; Z79.84 Long term (current) use of oral hypoglycemic drugs
CPT/HCPCS: 27447; 01402; 36415; 73560; 85014; 85018; 94760; 94762; 97162; 97530; C1776; C1713; C9290; J0171; J0330; J0690; J1170; J1642; J2250; J2270; J2405; J2704; J3010; J3410

== ENCOUNTER 2022-11-09 13:01 | Emergency (ER) | payer OTHER, MEDICARE, SELFPAY ==
[2022-07-14 12:59] VITALS: BMI 34.5
[2022-11-09] VITALS (13 sets, daily range): BP systolic 107–174; BP diastolic 56–115; PULSE 71–77; RESP 12–27; TEMP 37.1; O2SAT 97–100; BMI 35.2
[2022-11-09 13:52] LABS: Add Manual Diff / Slide Review NO; Basophils Absolute Auto 0 /uL (0-100); Basophils Percent Auto 0.3 % (0-2); Eosinophils Absolute Auto 400 /uL (0-450); Hematocrit 37.8 % (36-46); Hemoglobin 12.4 g/dL (12.0-16.0); Lymphocytes Absolute Auto 1300 /uL (1100-4500); Lymphocytes Percent Auto 13.4 % (25-40); Mean Corpuscular HGB Conc 32.9 % (30-36); Mean Corpuscular Hemoglobin 29.1 PG (26-34); Mean Corpuscular Volume 88.6 fL (80-100); Monocytes Absolute Auto 1000 /uL (0-900); Monocytes Percent Auto 9.8 % (3-14); Neutrophils Absolute Auto 7100 /uL (1500-7000); Neutrophils Percent Auto 72.5 % (50-75); Platelet Count 333 X10^3/uL (150-400); Red Blood Cell Count 4.27 X10^6/uL (4.0-5.2); Red Cell Distribution Width 14.7 % (11.6-14.8); White Blood Cell Count 9.8 X10^3/uL (4.5-11.0)
--- NOTE | 2022-11-09 13:53 | DI.US.S_ITS ---
PROCEDURE: US ABDOMEN LIMITED INDICATIONS: RUQ PAIN TECHNIQUE: Real-time focused scanning was performed of the abdomen, with image documentation. COMPARISON: [facility], CT, ABDOMEN/PELVIS WITH CONTRAST, 11/01/2012, 21:59. [facility], US, ABDOMEN COMPLETE, 11/01/2012, 20:33. FINDINGS: The liver demonstrates mildly enlarged size. The liver demonstrates generalized moderately increased echogenicity. This decreases ultrasound sensitivity for detection of hepatic masses. Two tiny mobile gallstones are seen that measure 3 mm. The gallbladder wall is not thickened, measuring 3 mm or less. No specific pericholecystic fluid is seen. The sonographic Boles sign is negative. There is no biliary dilatation, the common bile duct measures 6-7 mm. Pancreas is heterogeneous. No focal pancreas lesions are seen. IMPRESSION: Mobile gallstones are seen, without additional sonographic signs of cholecystitis. No biliary dilatation can be seen. The liver demonstrates increased echogenicity. This finding is nonspecific, yet it is most commonly attributed to fatty infiltration. Dictated by: Nathan Woodson M.D. on 11/09/2022 at 14:49 Approved by: Nathan Woodson M.D. on 11/09/2022 at 14:51
--- NOTE | 2022-11-09 13:56 | ED_ITS ---
HPI - Abdominal Pain <Donaldo Soto PA-C - Last Filed: 11/09/22 17:57> General Chief Complaint: Abdominal Pain Stated Complaint: Abd pain Time Seen by Provider: 11/09/22 13:06 Source: patient Mode of arrival: EMS History of Present Illness HPI narrative: 67-year-old female with past medical history diabetes, hypercholesterolemia brought in by EMS for 1 day of right upper quadrant pain. Patient was seen at clinic by Dr. Hooks, sent to the ED for further evaluation and workup. Patient states that her pain started acutely this morning at 9:00 a.m. when she was drinking her coffee. Patient did not eat anything else. Patient denies prior history of abdominal pain. Patient has had a intravaginal hysterectomy, no other intra-abdominal surgeries. Patient denies history of gallbladder disease. Patient states that her pain is in her right upper quadrant, worsened since 9:00 a.m. this morning. Current pain is at 7/10. Patient denies fever, chills, nausea, vomiting, dysuria, lightheadedness, dizziness, syncope. Patient's last bowel movement was yesterday, which was normal without hematochezia or melena. Patient does state that she sometimes feels nauseous due to the pain. Patient is currently not nauseous. Related Data Home Medications Medication Instructions Recorded Confirmed acetaminophen 500 mg tablet 1,000 mg PO Q6H PRN pain 12/12/18 11/09/22 (Tylenol Extra Strength) Previous Rx's Medication Instructions Recorded fluoxetine 20 mg capsule See Rx Instructions .Route 05/09/22 .COMPLEX #30 caps simvastatin 40 mg tablet 40 mg PO BEDTIME #90 tabs 05/13/22 ezetimibe 10 mg tablet (Zetia) 10 mg PO DAILY #90 tabs 06/09/22 gabapentin 300 mg capsule See Rx Instructions .Route 07/11/22 .COMPLEX #90 caps calcium carbonate 200 mg calcium 500 mg PO PRN PRN Dyspepsia #60 07/16/22 (500 mg) chewable tablet tabs omeprazole 40 mg capsule,delayed See Rx Instructions .Route 09/27/22 release .COMPLEX #90 caps metformin 750 mg tablet,extended See Rx Instructions .Route 10/13/22 release 24 hr .COMPLEX #60 tabs Allergies Allergy/AdvReac Type Severity Reaction Status Date / Time ciprofloxacin Allergy Unknown Pt thinks Verified 11/09/22 13:17 it was a rash propofol AdvReac Severe nausea, Verified 11/09/22 13:17 vomiting Review of Systems <Donaldo Soto PA-C - Last Filed: 11/09/22 17:57> Review of Systems ROS Unobtainable: All systems reviewed & are unremarkable except as noted in HPI and below Constitutional Constitutional: Denies chills, Denies fatigue, Denies fever(s), Denies frequent falls, Denies lethargy and Denies weakness Eyes Eyes: Denies change in vision, Denies eye discharge, Denies irritation and Denies loss of vision ENT Ears, Nose, Mouth, and Throat: Denies change in voice, Denies dizziness, Denies neck pain, Denies sore throat and Denies throat swelling Cardiovascular Cardiovascular: Denies chest pain, Denies irregular heart rhythm, Denies lightheadedness, Denies palpitations, Denies dyspnea, Denies dyspnea on exertion and Denies orthopnea Respiratory Respiratory: Denies cough, Denies dyspnea, Denies dyspnea on exertion and Denies wheezing Gastrointestinal Gastrointestinal: Reports abdominal pain, Denies change in bowel habits, Denies diarrhea, Reports nausea and Denies vomiting Genitourinary Genitourinary: Denies hematuria, Denies flank pain, Denies urinary incontinence and Denies urinary urgency Musculoskeletal Musculoskeletal: Denies back pain, Denies muscle weakness, Denies neck pain, Denies numbness and Denies tingling Integumentary/Breasts Skin/Breast: Denies pruritus, Denies erythema, Denies rash and Denies wounds Neurologic Neurologic: Denies behavioral changes, Denies confusion, Denies dizziness, Denies frequent falls, Denies loss of vision, Denies numbness, Denies tingling and Denies weakness Psychiatric Psychiatric: Denies anxiety, Denies behavioral changes, Denies confusion, Denies depression, Denies homicidal ideation and Denies suicidal ideation Endocrine Endocrine: Denies fatigue, Denies flushing and Denies palpitations Hematologic/Lymphatic Hematologic/Lymphatic: Denies easy bruising Allergic/Immunologic Allergic/Immunologic: Denies urticaria, Denies throat swelling and Denies wheezing Patient History <Donaldo Soto PA-C - Last Filed: 11/09/22 17:57> Medical History ADHD Allergic reaction to bee sting Cystocele with rectocele Depression Diabetes Dorsalgia GERD (gastroesophageal reflux disease) Hyperlipidemia Numbness and tingling of both feet Sciatica Suspected sleep apnea Surgical History History of partial hysterectomy History of total right knee replacement (12/26/18) Hx of LASIK Family History Father Heart disease Alcohol abuse Mother Loud snoring Obesity Hypertension Diabetes mellitus Family/Other Loud snoring Obesity Diabetes mellitus Depression ADD (attention deficit disorder) Alcohol abuse Substance abuse Family/Other Loud snoring Sleep apnea Obesity Diabetes mellitus Autism Asperger syndrome ADD (attention deficit disorder) Social History household members: spouse, family and children Smoking Status: Never smoker alcohol intake: current Smoking Status: Never smoker alcohol intake frequency: holidays/special occasions only Substance Use Type: does not use Exam <Donaldo Soto PA-C - Last Filed: 11/09/22 17:57> Narrative Exam Narrative: Const General:?cooperative, healthy appearing and comfortable [facility] Head:?normal to inspection Ears:?hearing grossly normal bilaterally Nose:?external nose normal Face and sinus:?normal facial exam and sinuses nontender Mouth:?oral mucosae normal Throat:?posterior oropharynx normal Eyes General:?appearance normal, both eyes and all related structures Neck Neck:?normal visual inspection and no lymphadenopathy noted Resp Effort & Inspection:?normal respiratory effort Auscultation:?clear to auscultation bilaterally Cardio Rate:?regular rate Rhythm:?regular rhythm GI Abdomen is soft, nondistended. Abdomen is tender to palpation in the right upper quadrant. There is no CVA tenderness. Neuro General:?patient alert, patient awake and patient oriented x3 Initial Vital Signs Initial Vital Signs: Vital Signs Temperature 98.7 F 11/09/22 13:04 Pulse Rate 72 11/09/22 13:04 Respiratory Rate 15 11/09/22 13:04 Blood Pressure 174/79 H 11/09/22 13:04 Pulse Oximetry 99 11/09/22 13:04 Oxygen Delivery Method 11/09/22 13:04 <Zi Nguyen MD - Last Filed: 11/10/22 11:36> Initial Vital Signs Initial Vital Signs: Vital Signs Temperature 98.7 F 11/09/22 13:04 Pulse Rate 72 11/09/22 13:04 Respiratory Rate 15 11/09/22 13:04 Blood Pressure 174/79 H 11/09/22 13:04 Pulse Oximetry 99 11/09/22 13:04 Oxygen Delivery Method 11/09/22 13:04 Course <Donaldo Soto PA-C - Last Filed: 11/09/22 17:57> Orders Ordered: Discontinued Medications Ketorolac Tromethamine (Ketorolac 30 Mg/Ml Vial) 15 mg IV NOW ONE Stop: 11/09/22 13:55 Last Admin: 11/09/22 14:21 Dose: 15 mg Documented By: FERNANDO Vital Signs Vital signs: Vital Signs - 8 hr 11/09/22 13:04 11/09/22 13:13 11/09/22 13:16 Temperature 98.7 F Pulse Rate 72 77 74 Respiratory Rate 15 21 Blood Pressure 174/79 H Pulse Oximetry 99 98 99 Oxygen Delivery Method Room Air 11/09/22 13:16 11/09/22 13:30 11/09/22 13:30 Temperature Pulse Rate 73 Respiratory Rate 17 Blood Pressure 174/79 H 165/115 H Pulse Oximetry 99 Oxygen Delivery Method 11/09/22 13:35 11/09/22 13:35 11/09/22 14:00 Temperature Pulse Rate 75 Respiratory Rate 24 Blood Pressure 170/78 H 165/77 H Pulse Oximetry 100 Oxygen Delivery Method 11/09/22 14:00 11/09/22 14:30 11/09/22 14:31 Temperature Pulse Rate 72 75 76 Respiratory Rate 27 H 20 22 Blood Pressure Pulse Oximetry 97 98 99 Oxygen Delivery Method 11/09/22 14:31 11/09/22 15:00 11/09/22 15:00 Temperature Pulse Rate 73 Respiratory Rate 20 Blood Pressure 162/81 H 140/77 Pulse Oximetry 98 Oxygen Delivery Method Room Air 11/09/22 15:30 11/09/22 15:30 11/09/22 16:00 Temperature Pulse Rate 71 Respiratory Rate 26 H Blood Pressure 160/75 H 157/74 H Pulse Oximetry 99 Oxygen Delivery Method 11/09/22 16:00 11/09/22 16:20 11/09/22 16:20 Temperature Pulse Rate 72 76 Respiratory Rate 26 H 23 Blood Pressure 107/56 L Pulse Oximetry 98 99 Oxygen Delivery Method 11/09/22 16:30 11/09/22 16:30 Temperature Pulse Rate 74 Respiratory Rate 12 Blood Pressure 145/65 H Pulse Oximetry 97 Oxygen Delivery Method <Zi Nguyen MD - Last Filed: 11/10/22 11:36> Orders Ordered: Discontinued Medications Ketorolac Tromethamine (Ketorolac 30 Mg/Ml Vial) 15 mg IV NOW ONE Stop: 11/09/22 13:55 Last Admin: 11/09/22 14:21 Dose: 15 mg Documented By: FERNANDO Vital Signs Vital signs: Vital Signs - 8 hr 11/09/22 13:04 11/09/22 13:13 11/09/22 13:16 Temperature 98.7 F Pulse Rate 72 77 74 Respiratory Rate 15 21 Blood Pressure 174/79 H Pulse Oximetry 99 98 99 Oxygen Delivery Method Room Air 11/09/22 13:16 11/09/22 13:30 11/09/22 13:30 Temperature Pulse Rate 73 Respiratory Rate 17 Blood Pressure 174/79 H 165/115 H Pulse Oximetry 99 Oxygen Delivery Method 11/09/22 13:35 11/09/22 13:35 11/09/22 14:00 Temperature Pulse Rate 75 Respiratory Rate 24 Blood Pressure 170/78 H 165/77 H Pulse Oximetry 100 Oxygen Delivery Method 11/09/22 14:00 11/09/22 14:30 11/09/22 14:31 Temperature Pulse Rate 72 75 76 Respiratory Rate 27 H 20 22 Blood Pressure Pulse Oximetry 97 98 99 Oxygen Delivery Method 11/09/22 14:31 11/09/22 15:00 11/09/22 15:00 Temperature Pulse Rate 73 Respiratory Rate 20 Blood Pressure 162/81 H 140/77 Pulse Oximetry 98 Oxygen Delivery Method Room Air 11/09/22 15:30 11/09/22 15:30 11/09/22 16:00 Temperature Pulse Rate 71 Respiratory Rate 26 H Blood Pressure 160/75 H 157/74 H Pulse Oximetry 99 Oxygen Delivery Method 11/09/22 16:00 11/09/22 16:20 11/09/22 16:20 Temperature Pulse Rate 72 76 Respiratory Rate 26 H 23 Blood Pressure 107/56 L Pulse Oximetry 98 99 Oxygen Delivery Method 11/09/22 16:30 11/09/22 16:30 Temperature Pulse Rate 74 Respiratory Rate 12 Blood Pressure 145/65 H Pulse Oximetry 97 Oxygen Delivery Method MDM - Abdominal Pain <Stefana HERNESTO Soto - Last Filed: 11/09/22 17:57> Lab Data 11/09/22 13:28 11/09/22 13:28 Labs: Lab Results 11/09/22 11/09/22 11/09/22 Range/Units 13:20 13:28 13:28 WBC 9.8 (4.5-11.0) X10^3/uL RBC 4.27 (4.0-5.2) X10^6/uL Hgb 12.4 (12.0-16.0) g/dL Hct 37.8 (36-46) % MCV 88.6 (80-100) fL MCH 29.1 (26-34) PG MCHC 32.9 (30-36) % RDW 14.7 (11.6-14.8) % Plt Count 333 (150-400) X10^3/uL Neut % (Auto) 72.5 (50-75) % Lymph % (Auto) 13.4 L (25-40) % Sherman % (Auto) 9.8 (3-14) % Eos % (Auto) 4.0 (2-4) % Baso % (Auto) 0.3 (0-2) % Neut # (Auto) 7100 H (8700-6274) /uL Lymph # (Auto) 1300 (4958-6914) /uL Sherman # (Auto) 1000 H (0-900) /uL Eos # (Auto) 400 (0-450) /uL Baso # (Auto) 0 (0-100) /uL Sodium 136 L (137-145) mmol/L Potassium 4.1 (3.4-5.1) mmol/L Chloride 100 (98-107) mmol/L Carbon Dioxide 24 (22-32) mmol/L BUN 17 (7-17) mg/dL Creatinine 0.64 (0.52-1.04) mg/dL Estimated GFR > 60 (>60) mL/min BUN/Creatinine Ratio 26.6 H (6-22) Glucose 98 (80-110) mg/dL Lactate 1.6 (0.7-2.1) mmol/L Calcium 9.0 (8.4-10.2) mg/dL Total Bilirubin 1.1 (0.2-1.3) mg/dL AST 59 H (14-36) IU/L ALT 39 H (<35) IU/L Alkaline Phosphatase 99 (38-126) U/L Total Protein 7.3 (6.3-8.2) g/dL Albumin 4.1 (3.5-5.0) g/dL Globulin 3.2 (1.7-4.1) g/dL Albumin/Globulin Ratio 1.3 (1.0-2.8) Lipase 61 (23-300) U/L [facility] Narrative Medical decision making narrative: 67-year-old female with past medical history diabetes, hypercholesterolemia brought in by EMS for 1 day of right upper quadrant pain. Concern for biliary colic versus cholecystitis versus cholelithiasis versus cholangitis versus pancreatitis versus other intra-abdominal pathology. Will obtain labs, lactate, lipase, ultrasound abdomen. Will give ketorolac for pain. Strict NPO. Labs within normal limits. CT abdomen pelvis without acute findings. Ultrasound shows mobile gallstones without cholecystitis. There is no biliary dilatation, CBD measures 6-7 mm. Patient's symptoms likely due to biliary colic. Patient's symptoms significantly improved with ketorolac. Patient stable through the ED stay. Discussed findings with patient, recommendations to manage and avoid biliary colic. Recommend general surgery consult. ED return precautions were discussed with patient. Patient verbalized understanding. Medical conditions reviewed: Yes <Zi Nguyen MD - Last Filed: 11/10/22 11:36> Medical Records Medical records narrative: I was immediately available in the department for consultation. Documentation has been reviewed. I agree with assessment and plan. Lab Data Labs: Lab Results 11/09/22 11/09/22 11/09/22 Range/Units 13:20 13:28 13:28 WBC 9.8 (4.5-11.0) X10^3/uL RBC 4.27 (4.0-5.2) X10^6/uL Hgb 12.4 (12.0-16.0) g/dL Hct 37.8 (36-46) % MCV 88.6 (80-100) fL MCH 29.1 (26-34) PG MCHC 32.9 (30-36) % RDW 14.7 (11.6-14.8) % Plt Count 333 (150-400) X10^3/uL Neut % (Auto) 72.5 (50-75) % Lymph % (Auto) 13.4 L (25-40) % Sherman % (Auto) 9.8 (3-14) % Eos % (Auto) 4.0 (2-4) % Baso % (Auto) 0.3 (0-2) % Neut # (Auto) 7100 H (5994-1980) /uL Lymph # (Auto) 1300 (4229-8959) /uL Sherman # (Auto) 1000 H (0-900) /uL Eos # (Auto) 400 (0-450) /uL Baso # (Auto) 0 (0-100) /uL Sodium 136 L (137-145) mmol/L Potassium 4.1 (3.4-5.1) mmol/L Chloride 100 (98-107) mmol/L Carbon Dioxide 24 (22-32) mmol/L BUN 17 (7-17) mg/dL Creatinine 0.64 (0.52-1.04) mg/dL Estimated GFR > 60 (>60) mL/min BUN/Creatinine Ratio 26.6 H (6-22) Glucose 98 (80-110) mg/dL Lactate 1.6 (0.7-2.1) mmol/L Calcium 9.0 (8.4-10.2) mg/dL Total Bilirubin 1.1 (0.2-1.3) mg/dL AST 59 H (14-36) IU/L ALT 39 H (<35) IU/L Alkaline Phosphatase 99 (38-126) U/L Total Protein 7.3 (6.3-8.2) g/dL Albumin 4.1 (3.5-5.0) g/dL Globulin 3.2 (1.7-4.1) g/dL Albumin/Globulin Ratio 1.3 (1.0-2.8) Lipase 61 (23-300) U/L Discharge Plan Departure Patient Disposition: Home Clinical Impression: Biliary colic Instructions: DI for Biliary Colic Activity Restrictions/Additional Instructions: You were evaluated in the ED today for abdominal pain. Your labs, CT abdomen pelvis, ultrasound of the abdomen did not show any acute findings to explain your symptoms. The ultrasound did show 2 mobile gallstones in the gallbladder, however your gallbladder is not inflamed, nor are the gallstones blocking any ducts. Your symptoms are due to biliary colic, which can happen if gallstones intermittently block a duct. It is advisable to eat a diet lower in fat to minimize biliary colic. You may take ibuprofen for pain, given that you responded very well to ketorolac in the ED. Please follow-up with a general surgeon for further evaluation. If your symptoms worsen, you are persistently vomiting, please return to the ED immediately. Prescriptions: No Action fluoxetine 20 mg capsule See Rx Instructions .ROUTE .COMPLEX Qty: 30 4RF Dose Instruction: TAKE ONE CAPSULE BY MOUTH EVERY DAY Rx Instructions: TAKE ONE CAPSULE BY MOUTH EVERY DAY simvastatin 40 mg tablet 40 mg PO BEDTIME Qty: 90 1RF ezetimibe [Zetia] 10 mg tablet 10 mg PO DAILY Qty: 90 3RF gabapentin 300 mg capsule See Rx Instructions .ROUTE .COMPLEX Qty: 90 3RF Dose Instruction: TAKE ONE CAPSULE BY MOUTH THREE TIMES A DAY Rx Instructions: TAKE ONE CAPSULE BY MOUTH THREE TIMES A DAY omeprazole 40 mg capsule,delayed release(DR/EC) See Rx Instructions .ROUTE .COMPLEX Qty: 90 0RF Dose Instruction: TAKE ONE CAPSULE BY MOUTH EVERY DAY Rx Instructions: TAKE ONE CAPSULE BY MOUTH EVERY DAY metformin 750 mg tablet extended release 24 hr See Rx Instructions .ROUTE .COMPLEX Qty: 60 2RF Dose Instruction: TAKE ONE TABLET BY MOUTH TWICE A DAY Rx Instructions: TAKE ONE TABLET BY MOUTH TWICE A DAY acetaminophen [Tylenol Extra Strength] 500 mg Tablet 1,000 mg PO Q6H PRN (Reason: pain) calcium carbonate 200 mg calcium (500 mg) Tablet,Chewable 500 mg PO PRN PRN (Reason: Dyspepsia) Qty: 60 0RF Referrals: Jessie Thomas PA-C [Primary Care Provider] - Stand Alone Forms: Patient Portal/API
[2022-11-09 14:03] LABS: Alanine Aminotransferase 39 IU/L (<35); Albumin 4.1 g/dL (3.5-5.0); Albumin Globulin Ratio 1.3 (1.0-2.8); Alkaline Phosphatase 99 U/L (38-126); Aspartate Aminotransferase 59 IU/L (14-36); BUN Creatinine Ratio 26.6 (6-22); Bilirubin Total 1.1 mg/dL (0.2-1.3); Blood Urea Nitrogen 17 mg/dL (7-17); Carbon Dioxide 24 mmol/L (22-32); Chloride 100 mmol/L (98-107); Estimated Glomerular Filt Rate > 60 mL/min (>60); Globulin 3.2 g/dL (1.7-4.1); Glucose 98 mg/dL (80-110); HEMOLYSIS < 15 (0-50); Lipase 61 U/L (23-300); Potassium 4.1 mmol/L (3.4-5.1); Sodium 136 mmol/L (137-145); Total Protein 7.3 g/dL (6.3-8.2)
[2022-11-09 14:21] LABS: Lactate (Lactic Acid) 1.6 mmol/L (0.7-2.1)
[2022-11-09] MEDS: KETOROLAC 30 MG/ML VIAL 15 MG IV (14:21)
--- NOTE | 2022-11-09 16:03 | DI.CT.S_ITS ---
PROCEDURE: CT ABDOMEN PELVIS W CON INDICATIONS: RUQ pain; ? liver echogenicity TECHNIQUE: After the administration of intravenous contrast, axial sections acquired from the lung bases to the pubic symphysis. Coronal and sagittal reformats were performed. For radiation dose reduction, the following was used: automated exposure control, adjustment of mA and/or kV according to patient size. COMPARISON: [facility], CT, ABDOMEN/PELVIS WITH CONTRAST, 11/01/2012, 21:59. FINDINGS: Image quality: Excellent. Lung bases: Unremarkable. Heart: No significant findings. ABDOMEN: Liver: Mild diffuse hepatic steatosis. No focal liver mass.. Gallbladder: Unremarkable. Biliary ducts: Unremarkable. Pancreas: Unremarkable. Spleen: Unremarkable. Adrenal Glands: Unremarkable. Kidneys and Ureters: Unremarkable. Stomach and Bowel: Stomach, small bowel loops, and colon are unremarkable. Normal appendix. Mild diverticulosis. Peritoneum: No abnormal intraperitoneal fluid. No free air. Ventral Wall: Small umbilical hernia containing fat. Abdominal Nodes: No retroperitoneal or mesenteric adenopathy by size criteria. Vessels: Aorta and inferior vena cava are normal in size. PELVIS: Pelvic Organs: Uterus is surgically absent. Posterior pelvic floor relaxation. Bladder: Unremarkable. Pelvic Nodes: No enlarged lymph nodes. Miscellaneous: No hernias are seen. Bones: Lumbar degenerative change. No lytic or blastic bony lesions. No compression fractures. IMPRESSION: 1. No evidence of acute abdominal process. 2. Mild diffuse hepatic steatosis. 3. Diverticulosis. 4. Remote hysterectomy. 5. Posterior pelvic floor relaxation. Dictated by: Vicente Diallo M.D. on 11/09/2022 at 17:05 Approved by: Vicente Diallo M.D. on 11/09/2022 at 17:09
== END 2022-11-09 17:44 | disposition home or self-care (01) ==
PROVIDERS: Emergency Provider Student in an Organized Health Care Education/Training Program; Family Provider Family Medicine; PCP Physician Assistant
DX: K80.50 Calculus of bile duct without cholangitis or cholecystitis without obstruction (principal); R10.11 Right upper quadrant pain
CPT/HCPCS: 36415; 74177; 76705; 80053; 83605; 83690; 85025; 93005; 93010; 99284; J1885

== ENCOUNTER 2022-11-22 06:34 | Day surgery (SDC) | payer OTHER, MEDICARE, SELFPAY ==
[2022-11-14 13:13] VITALS: BMI 34.5
[2022-11-18 12:32] VITALS: BMI 34.9
--- NOTE | 2022-11-22 | PATH_ITS ---
[facility] Accession Number: [id number] No. of containers..01 Tissue . 01 Material submitted: . gallbladder - GALLBLADDER . 01 Diagnosis: Gallbladder, Cholecystectomy: Mild chronic cholecystitis. Negative for atypia and malignancy. MRV 11/28/2022 1519 Local . 01 Electronically signed: . Trina Moralez MD, Pathologist NPI- [id number] . 01 Gross description: . Received in formalin labeled gallbladder is a 6.5 cm in length by 2.6 cm in diameter, unopened, intact gallbladder with a green-mosquera smooth and glistening anterior serosal surface and roughened posterior bed. The mucosa is green-black and velvety. There are no calculi found within the lumen. The cystic duct margin is marked with blue ink. Assistant In Nursing sections are submitted in A1. ([id number]) /MRV 11/28/20229 Local . 01 Pathologist provided ICD-10: K80.20 . 01 CPT . 616589 Specimen Comment: A courtesy copy of this report has been sent to [phone] Performed at: 01 [facility] [address] [place] [address] [id number] MD Tobias Sebastian MD Phone: [phone]
[2022-11-22 07:08] VITALS: BP 125/81; PULSE 72; RESP 16; TEMP 36.3; O2SAT 98; BMI 34.9
[2022-11-22] MEDS: LACTATED RINGERS 1,000 ML 42 ML IV ×2 (07:13→08:47)
--- NOTE | 2022-11-22 07:42 | PM.PREOP ---
Pre-operative Note COVID-19 COVID-19 status: Not tested Interval Note History & Physical reviewed/Exam performed by Physician: Yes Changes to H&P: No ASA Class (for procedural sedation): II
--- NOTE | 2022-11-22 08:00 | DI.RAD.S_ITS ---
PROCEDURE: XR CHOLANGIOGRAM OPERATIVE INDICATIONS: OPERATIVE CHOLANGIOGRAM COMPARISON: [facility], CT, CT ABDOMEN PELVIS W CON, 11/09/2022, 16:11. [facility], US, US ABDOMEN LIMITED, 11/09/2022, 14:02. FINDINGS: Biliary ducts: The surgeon injected contrast into the biliary ducts after cannulation of the cystic duct stump. Visualized intra- and extrahepatic bile ducts are normal in caliber, without strictures. No intraluminal filling defects to suggest retained ductal stones or sludge. No evidence for iatrogenic ductal injury. Duodenum: Contrast flows promptly through the sphincter of Oddi into the duodenum, which appears normal in caliber. IMPRESSION: Normal intraoperative foot cholangiogram. Dictated by: Kareem Palomo M.D. on 11/22/2022 at 9:40 Approved by: Kareem Palomo M.D. on 11/22/2022 at 9:41
[2022-11-22] MEDS: CEFAZOLIN 2 GM/100 ML PREMIX 100 ML IV (08:05)
--- NOTE | 2022-11-22 08:22 | SUR.OPER ---
Supine on padded OR bed, head on pillow, safety belt at thigh, left arm padded and tucked at side. Right arm secured on padded arm board <90 degrees abduction. Legs uncrossed. Padded footboard in place with gel pad under heels. Tape over blanket to secure lower legs.
[2022-11-22] MEDS: IOPAMIDOL 30 ML VIAL INJ (08:53)
[2022-11-22] MEDS: BUPIVACAINE 0.5% W/ EPI (PF) 30 ML VIAL INJ (08:54)
[2022-11-22 09:17] VITALS: BP 126/69; PULSE 80; RESP 15; TEMP 36.4; O2SAT 93
[2022-11-22 09:23] VITALS: BP 110/56; PULSE 81; RESP 17; TEMP 36.4; O2SAT 95
--- NOTE | 2022-11-22 09:23 | PM.OP.1 ---
Operative Date/Time/Diagnoses Date of procedure: 11/22/22 Time of procedure: 09:23 Pre-op diagnosis: Cholelithiasis Post-op diagnosis: same Procedure & Clinicians Procedure: Laparoscopic cholecystectomy with intraoperative cholangiogram Same procedure as scheduled: Yes Surgeon: Joaquín La Anesthesia Type: General Operative Notes Procedure in detail: The patient was given preoperative antibiotic. The patient was brought to the operating room, placed on the table in the supine position. General endotracheal anesthesia was induced. The abdomen was prepped and draped. A time-out was performed. We made a 1 cm infraumbilical incision. We dissected down to the base of the umbilical stalk using cautery. We grasped the umbilical stalk with a Rubina clamp to elevate the abdominal wall. We scored the fascia in the midline with cautery 1 cm. We pierced the peritoneum with a Peon clamp. The Halima port was placed and the abdomen was insufflated to 15 mmHg. A 5 mm 30 degree laparoscopic was inserted. There was no evidence of any injury from the entry. Next, we placed 5 mm ports in the subxiphoid position and right upper quadrant at the midclavicular line and anterior axillary line. The patient was then positioned in reverse Trendelenburg and the table was tilted to the left. The gallbladder was grasped at the dome and retracted cephalad. There were some adhesions of mesenteric tissue to the gallbladder serosa which were carefully dissected with cautery to allow full retraction of the gallbladder. We then dissected the cystic structures with a combination of hook cautery and blunt dissection. We obtained a critical view. Next, a cholangiogram was performed using the 6 Faroese ureteral catheter. There was good flow of contrast into the duodenum and liver with no obvious filling defects. The cystic duct-common duct junction was well visualized. We then placed clips on the cystic duct and artery and divided the cystic duct and artery sharply between the clips. The gallbladder was then dissected off the liver and placed in a specimen retrieval bag. We irrigated the right upper quadrant and all the aspirate returned clear. We then removed the 5 mm ports under direct vision we removed the Halima port. We then injected some local into the fascia and closed the fascia with 2 interrupted 0 Vicryl sutures. The skin incisions were closed with 4 Monocryl and Steri-Strips were applied. Band-Aids were applied over the Steri-Strips. EBL: 10 mL Specimen: Gallbladder Post-operative Condition: stable Disposition: PACU
[2022-11-22 09:29] VITALS: BP 107/57; PULSE 75; RESP 15; TEMP 36.3; O2SAT 94
[2022-11-22 09:35] VITALS: BP 114/66; PULSE 70; RESP 16; TEMP 36.3; O2SAT 93
== END 2022-11-22 09:56 | disposition home or self-care (01) ==
PROVIDERS: Family Provider Family Medicine; PCP Physician Assistant; Referring Provider Surgery; Visit Provider Surgery
PROC: 0FT44ZZ Resection of Gallbladder, Percutaneous Endoscopic Approach (ICD-10-PCS; CPT 47562; principal; 2022-11-22 07:45)
DX: K81.1 Chronic cholecystitis (principal)
CPT/HCPCS: 47563; 74300; J0690; J1100; J1885; J2405; J2704; J3010; Q9967

== ENCOUNTER → 2023-02-28 11:21 | Outpatient (CLI) | payer OTHER, SELFPAY ==
[2022-11-14 13:13] VITALS: BMI 34.5
[2023-02-28 20:02] LABS: Add Manual Diff / Slide Review NO; Basophils Absolute Auto 100 /uL (0-100); Basophils Percent Auto 0.8 % (0-2); Eosinophils Absolute Auto 300 /uL (0-450); Eosinophils Percent Auto 3.1 % (2-4); Hemoglobin 12.8 g/dL (12.0-16.0); Lymphocytes Absolute Auto 2000 /uL (1100-4500); Lymphocytes Percent Auto 25.1 % (25-40); Mean Corpuscular HGB Conc 33.8 % (30-36); Mean Corpuscular Hemoglobin 30.3 PG (26-34); Mean Corpuscular Volume 89.7 fL (80-100); Monocytes Absolute Auto 600 /uL (0-900); Neutrophils Absolute Auto 5200 /uL (1500-7000); Platelet Count 408 X10^3/uL (150-400); Red Blood Cell Count 4.23 X10^6/uL (4.0-5.2); Red Cell Distribution Width 14.7 % (11.6-14.8); White Blood Cell Count 8.1 X10^3/uL (4.5-11.0)
[2023-02-28 20:12] LABS: Alanine Aminotransferase 98 IU/L (<35); Albumin 4.1 g/dL (3.5-5.0); Albumin Globulin Ratio 1.4 (1.0-2.8); Alkaline Phosphatase 117 U/L (38-126); Aspartate Aminotransferase 50 IU/L (14-36); BUN Creatinine Ratio 26.6 (6-22); Bilirubin Total 0.9 mg/dL (0.2-1.3); Blood Urea Nitrogen 17 mg/dL (7-17); Calcium 9.9 mg/dL (8.4-10.2); Carbon Dioxide 25 mmol/L (22-32); Chloride 102 mmol/L (98-107); Cholesterol 138 mg/dL (140-199); Estimated Glomerular Filt Rate > 60 mL/min (>60); Glucose 108 mg/dL (80-110); HDL Cholesterol 48 mg/dL (40-60); HEMOLYSIS < 15 (0-50); LDL Cholesterol Calculated 53 mg/dL (<100); Potassium 4.7 mmol/L (3.4-5.1); Sodium 136 mmol/L (137-145); Total Protein 7.1 g/dL (6.3-8.2); Triglycerides 187 mg/dL (35-150)
[2023-02-28 20:39] LABS: Thyroid Stimulating Hormone 1.98 uIU/mL (0.47-4.68)
[2023-03-01 22:10] LABS: x Labcorp Estim. Avg Glu (eAG) 143 mg/dL (.); x Labcorp Hemoglobin A1c 6.6 % (4.8-5.6)
== END ==
PROVIDERS: Family Provider Family Medicine; PCP Physician Assistant; Visit Provider Family Medicine
DX: K57.92 Diverticulitis of intestine, part unspecified, without perforation or abscess without bleeding (principal); E11.9 Type 2 diabetes mellitus without complications; E78.5 Hyperlipidemia, unspecified
CPT/HCPCS: 80053; 80061; 83036; 84443; 85025

== ENCOUNTER → 2023-03-09 12:25 | Outpatient (CLI) | payer OTHER, SELFPAY ==
[2022-11-14 13:13] VITALS: BMI 34.5
--- NOTE | 2023-03-09 12:25 | DI.CT.S_ITS ---
PROCEDURE: CT ABDOMEN PELVIS W CON INDICATIONS: LLQ pain, recurrent diverticulitis TECHNIQUE: After the administration of intravenous contrast, axial sections acquired from the lung bases to the pubic symphysis. Coronal and sagittal reformats were performed. For radiation dose reduction, the following was used: automated exposure control, adjustment of mA and/or kV according to patient size. COMPARISON: [facility], CT, CT ABDOMEN PELVIS W CON, 11/09/2022, 16:11. FINDINGS: Image quality: Excellent. Lung bases: Unremarkable. Heart: No significant findings. ABDOMEN: Liver: Mild diffuse hepatic steatosis. No liver mass.. Gallbladder: Surgically absent Biliary ducts: Unremarkable. Pancreas: Unremarkable. Spleen: Unremarkable. Adrenal Glands: Unremarkable. Kidneys and Ureters: Unremarkable. Stomach and Bowel: Diverticulosis without evidence of diverticulitis. No dilated loops or thickened loops. Normal appendix. Peritoneum: No abnormal intraperitoneal fluid. No free air. Ventral Wall: No hernias. Abdominal Nodes: No retroperitoneal or mesenteric adenopathy by size criteria. Vessels: Aorta and inferior vena cava are normal in size. PELVIS: Pelvic Organs: Uterus is surgically absent. Posterior pelvic floor relaxation. Bladder: Unremarkable. Pelvic Nodes: No enlarged lymph nodes. Miscellaneous: No hernias are seen. Bones: Mild lumbar degenerative change. No lytic or blastic bony lesions. No compression fractures. IMPRESSION: 1. No acute process. 2. Remote cholecystectomy and hysterectomy. 3. Mild diffuse hepatic steatosis. 4. Posterior pelvic floor relaxation. 5. Diverticulosis. Dictated by: Vicente Diallo M.D. on 03/09/2023 at 13:50 Approved by: Vicente Diallo M.D. on 03/09/2023 at 13:54
== END ==
PROVIDERS: Family Provider Family Medicine; PCP Physician Assistant; Referring Provider Family Medicine; Visit Provider Family Medicine
DX: K57.92 Diverticulitis of intestine, part unspecified, without perforation or abscess without bleeding (principal); N81.89 Other female genital prolapse; R10.32 Left lower quadrant pain; Z90.49 Acquired absence of other specified parts of digestive tract; Z90.710 Acquired absence of both cervix and uterus
CPT/HCPCS: 74177; Q9967

== ENCOUNTER → 2023-03-30 13:44 | Outpatient (CLI) | payer OTHER, SELFPAY ==
[2023-03-16 11:17] VITALS: BMI 34.5
[2023-03-30 19:42] LABS: Alanine Aminotransferase 26 IU/L (<35); Albumin Globulin Ratio 1.4 (1.0-2.8); Alkaline Phosphatase 87 U/L (38-126); Aspartate Aminotransferase 28 IU/L (14-36); BUN Creatinine Ratio 19.1 (6-22); Bilirubin Total 0.7 mg/dL (0.2-1.3); Blood Urea Nitrogen 13 mg/dL (7-17); Calcium 9.5 mg/dL (8.4-10.2); Carbon Dioxide 28 mmol/L (22-32); Chloride 101 mmol/L (98-107); Estimated Glomerular Filt Rate > 60 mL/min (>60); Globulin 2.8 g/dL (1.7-4.1); Glucose 96 mg/dL (80-110); HEMOLYSIS < 15 (0-50); Potassium 4.5 mmol/L (3.4-5.1); Sodium 137 mmol/L (137-145); Total Protein 6.8 g/dL (6.3-8.2)
[2023-04-01 02:23] LABS: HBsAg Screen Negative (Negative); Hepatitis A Antibody IgM Negative (Negative); Hepatitis B Core Antibody IgM Negative (Negative); Hepatitis C Antibody Non Reactive (Non Reactive)
[2023-04-03 20:14] LABS: ANA Screen, IFA Negative (.)
== END ==
PROVIDERS: Family Provider Family Medicine; PCP Family Medicine; Visit Provider Family Medicine
DX: E11.9 Type 2 diabetes mellitus without complications (principal); E78.5 Hyperlipidemia, unspecified; R79.89 Other specified abnormal findings of blood chemistry; G62.9 Polyneuropathy, unspecified
CPT/HCPCS: 80053; 80074; 86038

== ENCOUNTER → 2023-06-13 16:02 | Outpatient (CLI) | payer OTHER, MEDICARE, SELFPAY ==
[2023-03-16 11:17] VITALS: BMI 34.5
== END ==
PROVIDERS: Family Provider Family Medicine; PCP Family Medicine; Visit Provider Physician Assistant
DX: R35.0 Frequency of micturition (principal)
CPT/HCPCS: 87077; 87086; 87186

== ENCOUNTER → 2023-10-05 10:30 | Outpatient (CLI) | payer OTHER, SELFPAY ==
[2023-03-16 11:17] VITALS: BMI 34.5
[2023-10-05 21:24] LABS: Microalbumi Creatinin Ratio Ur 6.7 ug/mg CR (<30); Microalbumin Urine Random 1.5 mg/dL (0-1.6)
== END ==
PROVIDERS: Family Provider Family Medicine; PCP Family Medicine; Visit Provider Family Medicine
DX: E11.9 Type 2 diabetes mellitus without complications (principal)
CPT/HCPCS: 82043; 82570

== ENCOUNTER → 2024-03-28 10:37 | Outpatient (CLI) | payer BC, SELFPAY ==
[2024-02-08 16:27] VITALS: BMI 34.5
[2024-03-28 19:56] LABS: Add Manual Diff / Slide Review NO; Basophils Absolute Auto 0 /uL (0-100); Basophils Percent Auto 0.6 % (0-2); Eosinophils Absolute Auto 200 /uL (0-450); Eosinophils Percent Auto 2.8 % (2-4); Hematocrit 39.4 % (36-46); Hemoglobin 13.1 g/dL (12.0-16.0); Lymphocytes Absolute Auto 1900 /uL (1100-4500); Lymphocytes Percent Auto 31.4 % (25-40); Mean Corpuscular HGB Conc 33.1 % (30-36); Mean Corpuscular Hemoglobin 29.5 PG (26-34); Mean Corpuscular Volume 89.2 fL (80-100); Monocytes Absolute Auto 500 /uL (0-900); Monocytes Percent Auto 7.9 % (3-14); Neutrophils Absolute Auto 3500 /uL (1500-7000); Neutrophils Percent Auto 57.3 % (50-75); Platelet Count 386 X10^3/uL (150-400); Red Blood Cell Count 4.42 X10^6/uL (4.0-5.2); Red Cell Distribution Width 14.7 % (11.6-14.8); White Blood Cell Count 6.1 X10^3/uL (4.5-11.0)
[2024-03-28 19:59] LABS: HEMOLYSIS < 15 (0-50); Iron 79 ug/dL (37-170)
[2024-03-28 20:01] LABS: Alanine Aminotransferase 27 IU/L (<35); Albumin 4.4 g/dL (3.5-5.0); Albumin Globulin Ratio 1.6 (1.0-2.8); Alkaline Phosphatase 72 U/L (38-126); Aspartate Aminotransferase 33 IU/L (14-36); BUN Creatinine Ratio 25.4 (6-22); Blood Urea Nitrogen 18 mg/dL (7-17); Calcium 9.7 mg/dL (8.4-10.2); Carbon Dioxide 28 mmol/L (22-32); Chloride 104 mmol/L (98-107); Cholesterol 128 mg/dL (140-199); Estimated Glomerular Filt Rate > 60 mL/min (>60); Globulin 2.8 g/dL (1.7-4.1); Glucose 103 mg/dL (80-110); HDL Cholesterol 42 mg/dL (40-60); HEMOLYSIS < 15 (0-50); LDL Cholesterol Calculated 47 mg/dL (<100); Potassium 4.3 mmol/L (3.4-5.1); Sodium 139 mmol/L (137-145); Total Protein 7.2 g/dL (6.3-8.2); Triglycerides 194 mg/dL (35-150)
[2024-03-28 20:02] LABS: Hemoglobin A1C% w Est Avg Glu 6.3 % (4.0-6.0)
[2024-03-28 20:15] LABS: Percent Iron Saturation 17 % (15-50); Total Iron Binding Capacity 465 ug/dL (265-497); Transferrin 364 mg/dL (206-381)
[2024-03-28 20:18] LABS: Vitamin D 25 Hydroxy (D3) 44.4 ng/mL (30.0-100.0)
[2024-03-28 20:20] LABS: Free T3, Triiodothyronine Free 3.47 pg/mL (2.77-5.27)
[2024-03-28 20:34] LABS: Thyroid Stimulating Hormone 1.47 uIU/mL (0.47-4.68)
[2024-03-28 20:35] LABS: Ferritin 8 ng/mL (11-264)
[2024-03-28 20:41] LABS: INR 0.9 (0.9-1.3); Prothrombin Time 10.4 SECONDS (9.4-12.5)
[2024-03-28 20:44] LABS: PTT Partial Thromboplastin Tim 35 SECONDS (25.1-36.5)
[2024-03-28 21:07] LABS: Folate > 20.0 ng/mL (2.76-20.0); Vitamin B12 677 pg/mL (239-931)
== END ==
PROVIDERS: Surgery; Family Provider Family Medicine; PCP Family Medicine
DX: Z01.812 Encounter for preprocedural laboratory examination (principal); E55.9 Vitamin D deficiency, unspecified; E63.9 Nutritional deficiency, unspecified
CPT/HCPCS: 80053; 80061; 82306; 82607; 82728; 82746; 83036; 83540; 83550; 84425; 84443; 84481; 85025; 85610; 85730

== ENCOUNTER → 2024-11-28 09:57 | Outpatient (CLI) | payer MEDICARE, SELFPAY ==
[2024-02-08 16:27] VITALS: BMI 34.5
[2024-11-28 20:52] LABS: Add Manual Diff / Slide Review NO; Basophils Absolute Auto 0 /uL (0-100); Basophils Percent Auto 0.4 % (0-2); Eosinophils Absolute Auto 200 /uL (0-450); Eosinophils Percent Auto 2.8 % (2-4); Hematocrit 39.7 % (36-46); Hemoglobin 13.4 g/dL (12.0-16.0); Lymphocytes Absolute Auto 2200 /uL (1100-4500); Lymphocytes Percent Auto 38.8 % (25-40); Mean Corpuscular HGB Conc 33.8 % (30-36); Mean Corpuscular Volume 94.6 fL (80-100); Monocytes Absolute Auto 400 /uL (0-900); Monocytes Percent Auto 7.2 % (3-14); Neutrophils Absolute Auto 2900 /uL (1500-7000); Neutrophils Percent Auto 50.8 % (50-75); Platelet Count 318 X10^3/uL (150-400); Red Cell Distribution Width 14.1 % (11.6-14.8); White Blood Cell Count 5.7 X10^3/uL (4.5-11.0)
[2024-11-28 21:16] LABS: Alanine Aminotransferase 22 IU/L (<35); Albumin 4.1 g/dL (3.5-5.0); Albumin Globulin Ratio 1.6 (1.0-2.8); Alkaline Phosphatase 65 U/L (38-126); Aspartate Aminotransferase 30 IU/L (14-36); BUN Creatinine Ratio 28.8 (6-22); Bilirubin Total 1.3 mg/dL (0.2-1.3); Blood Urea Nitrogen 19 mg/dL (7-17); Calcium 9.8 mg/dL (8.4-10.2); Carbon Dioxide 27 mmol/L (22-32); Chloride 103 mmol/L (98-107); Cholesterol 199 mg/dL (140-199); Estimated Glomerular Filt Rate > 60 mL/min (>60); Globulin 2.5 g/dL (1.7-4.1); Glucose 103 mg/dL (80-110); HDL Cholesterol 53 mg/dL (40-60); HEMOLYSIS 18 (0-50); LDL Cholesterol Calculated 110 mg/dL (<100); Sodium 137 mmol/L (137-145); Total Protein 6.6 g/dL (6.3-8.2); Triglycerides 181 mg/dL (35-150)
[2024-11-28 21:28] LABS: Potassium 4.4 mmol/L (3.4-5.1)
[2024-11-28 21:42] LABS: Thyroid Stimulating Hormone 2.24 uIU/mL (0.47-4.68)
== END ==
PROVIDERS: Family Provider Family Medicine; PCP Family Medicine; Visit Provider Family Medicine
DX: I10 Essential (primary) hypertension (principal); E11.9 Type 2 diabetes mellitus without complications
CPT/HCPCS: 80053; 80061; 84443; 85025

== ENCOUNTER → 2025-04-17 09:13 | Outpatient (CLI) | payer OTHER, SELFPAY ==
[2024-02-08 16:27] VITALS: BMI 34.5
--- NOTE | 2025-04-17 14:27 | DI.MG.S_ITS ---
MM screening mammo BI: 04/17/2025. BI-RADS: 1 CLINICAL: 70-year old female for bilateral screening mammogram. Tyrer-Cuzick lifetime risk of 11.3%. Current reported family history of breast cancer: mother, second maternal aunt and third maternal aunt. PRIOR EXAMS 03/02/2020, 07/28/2015. MAMMOGRAPHY TECHNIQUE: 2D and 3D (tomosynthesis) digital mammographic views obtained, with additional images as needed for full coverage. Current study was also evaluated with a Computer Aided Detection (CAD) system. DENSITY B. There are scattered areas of fibroglandular density. MAMMOGRAPHY FINDINGS Bilateral: No suspicious mass, asymmetry, microcalcification, or other abnormality seen. No significant change from comparison. IMPRESSION: * No evidence of malignancy. RECOMMENDATIONS Bilateral * Annual screening mammography. OVERALL ASSESSMENT CATEGORY BI-RADS-1: Negative. The [employer] recommends annual screening mammography beginning at age 40 for women with average risk of breast cancer. ELECTRONICALLY SIGNED: Maritza Parnell M.D. on 04/17/2025 at 10:23:53 PM PT Interpreting Station ID: [id number]
--- NOTE | 2025-04-17 14:27 | DI.RAD.S_ITS ---
PROCEDURE: XR DEXA AXIAL SKELETON INDICATIONS: wrist fracture COMPARISON: None. FINDINGS: Lumbar Spine: Bone mineral density 1.077 g/cm2, T score 0.3. Left Femoral Neck: Bone mineral density 0.760 g/cm2, T score -0.8. Left Hip: Bone mineral density 0.946 g/cm2, T score 0.0. Fracture Risk Calculation (when applicable): 10-year fracture risk of a major osteoporotic fracture 8.1 percent and of a hip fracture 0.6 percent. (T score greater or equal to -1.0 to: NORMAL) (T score from -1.1 to -2.4: OSTEOPENIA) (T score less than or equal to -2.5: OSTEOPOROSIS) IMPRESSION: Normal bone mineral density. Follow-up guidelines as follows: Osteoporosis: Consider a repeat DEXA and Vertebral Fracture Assessment (VFA) exam in 2 years or sooner if medically necessary, to reassess this patient's status. Osteopenia: Consider a repeat DEXA in 2-3 years to reassess this patient's status, or if there is a new clinical indication. Normal: Consider a repeat DEXA in 5 years or sooner, or if there is a new clinical indication. All treatment decisions require clinical judgment and consideration of individual patient factors, including patient preferences, comorbidities, previous drug use, risk factors not captured in the FRAX model (e.g., frailty, falls, vitamin D deficiency, increased bone turnover, interval significant decline in bone density ) and possible under- or over-estimation of fracture risk by FRAX. In addition, the NOF Guide recommends that FDA-approved medical therapies be considered in postmenopausal women and men age >= 50 years with a: * Hip or vertebral (clinical or morphometric) fracture * T-score of <=-2.5 at the spine or hip * Ten-year fracture probability by FRAX of >= 3% for hip fracture or >=20% for major osteoporotic fracture. Dictated by: German Murray M.D. on 04/17/2025 at 16:56 Approved by: German Murray M.D. on 04/17/2025 at 16:57
== END ==
LOC: RAD 09:27
PROVIDERS: PCP Family Medicine; Referring Provider Family Medicine; Visit Provider Family Medicine
DX: Z12.31 Encounter for screening mammogram for malignant neoplasm of breast (principal); Z80.3 Family history of malignant neoplasm of breast; Z78.0 Asymptomatic menopausal state
CPT/HCPCS: 77063; 77067; 77080

== ENCOUNTER → 2025-05-08 14:13 | Outpatient (CLI) | payer OTHER, SELFPAY ==
[2024-02-08 16:27] VITALS: BMI 34.5
== END ==
PROVIDERS: PCP Family Medicine; Visit Provider Nurse Practitioner Adult Health
DX: R35.0 Frequency of micturition (principal); R39.15 Urgency of urination; N39.41 Urge incontinence; N89.8 Other specified noninflammatory disorders of vagina
CPT/HCPCS: 87077; 87086; 87186

== ENCOUNTER → 2025-06-05 09:23 | Outpatient (CLI) | payer MEDICARE, OTHER, SELFPAY ==
[2024-02-08 16:27] VITALS: BMI 34.5
[2025-06-05 19:59] LABS: Cholesterol 198 mg/dL (140-199); HDL Cholesterol 57 mg/dL (40-60); Triglycerides 207 mg/dL (35-150)
[2025-06-05 20:13] LABS: Vitamin D 25 Hydroxy (D3) 41.0 ng/mL (30.0-100.0)
[2025-06-05 20:22] LABS: Hemoglobin A1C% w Est Avg Glu 5.8 % (4.0-6.0)
[2025-06-05 20:35] LABS: Ferritin 26 ng/mL (11-264)
[2025-06-05 21:06] LABS: Folate > 20.0 ng/mL (2.76-20.0); Vitamin B12 > 1000 pg/mL (239-931)
== END ==
PROVIDERS: PCP Family Medicine; Visit Provider Family Medicine
DX: E11.9 Type 2 diabetes mellitus without complications (principal); K90.9 Intestinal malabsorption, unspecified; R79.89 Other specified abnormal findings of blood chemistry; I10 Essential (primary) hypertension; E78.5 Hyperlipidemia, unspecified; Z98.84 Bariatric surgery status; Z12.39 Encounter for other screening for malignant neoplasm of breast; E56.9 Vitamin deficiency, unspecified
CPT/HCPCS: 80061; 82306; 82607; 82728; 82746; 83036

== ENCOUNTER → 2025-07-14 14:44 | Outpatient (CLI) | payer OTHER, SELFPAY ==
[2024-02-08 16:27] VITALS: BMI 34.5
== END ==
PROVIDERS: PCP Family Medicine; Visit Provider Nurse Practitioner Adult Health
DX: N39.41 Urge incontinence (principal)
CPT/HCPCS: 87077; 87086